=== PATIENT | male | born 1965 | race Caucasian/White ===

== ENCOUNTER → 2016-11-12 | Outpatient (CLI) | payer BC ==
--- NOTE | 2016-11-14 16:22 | POLYSOMNOGRAPH REPORT ---
CLINICAL DATA: A 51-year-old male with BMI of 31.9 referred by his physician at [facility] for evaluation of possible sleep apnea. He has a history of loud snoring and fatigue. On the evening of 11/13/2016, a home sleep apnea test was performed using a [employer] type 3 monitor. RECORDING RESULTS: Total recording time was 10 hours. The patient's monitoring time and estimated sleep time was 5.4 hours. RESPIRATORY DATA: Mild sleep apnea was documented. The JASMINA was 11.8. There were 2 obstructive apneic episodes and 54 hypopneic episodes. The longest respiratory event was 53 seconds. OXIMETRY DATA: Nocturnal hypoxemia was seen. Oxygen john was 69%. Mean saturation was 90%. Time below 89% was 41 minutes. HEART RATE DATA: Heart rates ranged from 55-76 beats per minute. SNORING DATA: Snoring was recorded throughout the night. VENEER PATCHER'S COMMENTS: The product development technician noted that snoring was loud for most of the test. Hypopneas and apneas were seen. In the last 3 hours of the night, the patient's thermistor was off and events were still scored due to saturations and respiratory changes. IMPRESSION: Mild sleep apnea/hypopnea with nocturnal hypoxemia. RECOMMENDATIONS: The patient may benefit from weight loss, use of an oral appliance, or a repeat sleep study with CPAP. Clinical correlation is needed. If there is any question about the results, an in-lab baseline sleep study is recommended. PAOLOD
== END | disposition home or self-care (01) ==
LOC: C.NEUR 10:37
PROVIDERS: ATTEND Psychiatry & Neurology Neurology
DX: G47.30 Sleep apnea, unspecified (principal)

== ENCOUNTER 2021-05-16 02:28 | Observation (INO) ==
--- NOTE | 2021-05-16 04:06 | Urology Consultation ---
Date of Consultation May 16, 2021 Assessment & Plan (1) Hematuria: I suspect the patient's hematuria is likely related to his recent urologic procedures. We recommend proceeding as follows: Patient's catheter is patent at this time, however he has only been in the emergency department approximately 1-1/2 hours. He is very anxious about going home as this is his second trip to the emergency department since his most recent procedure and he is concerned his catheter will become clogged again. I feel it is prudent to observe him in the emergency department for a few hours with instructions for nursing staff to irrigate the catheter as needed. I have discussed with the patient that if his Blanchard catheter continues to clog with blood clots we may need to take further action such as instituting continuous bladder irrigation or even potentially performing a cystoscopy for clot ev acuation. I therefore asked the patient to remain n.p.o. for the present time. We will have our day team evaluate him early this morning with additional recommendations to follow. Supervising Physician Co-Signing Physician Notes I have discussed Mr. Landaverde's case with Wood Gilliland PA-C and agree with the above documentation. Ideally for hematuria we would place a large bore catheter to optimize clot evacuation and drainage, although he is refusing catheter exchange. Reasonable to monitor to ensure catheter continues to drain prior to discharge home. Hematuria is likely related to recent instrumentation. UTI is a possibility, although he has been on antibiotics. History of Present Illness Reason for Consultation: Hematuria History of Present Illness This is a 56-year-old male who underwent a cystoscopy with left ureteral nephroscopy and removal of a stent by Dr. Negron on 05/15/2021. Patient had previously undergone a cystoscopy with a ureteral nephroscopy and a left urete ral dilatation with laser lithotripsy and stent insertion on 04/25/2021. The patient was discharged on 05/15/2021 following his procedure. He presented back to the emergency department later the same day as the patient was unable to urinate and was passing some blood clots and bloody urine prior to not being able to void. During his visit to the emergency department the patient had a Blanchard catheter placed which was irrigated and a large amount of bloody urine was obtained which subsequently cleared. Patient was discharged home with instructions to follow-up with Dr. Negron in the office the following day. There is no over the mention that the patient was receiving antibiotics in the form of Cipro. The patient represented to the emergency department on 05/16/2021 after experiencing again hematuria from his Blanchard catheter and his Blanchard catheter became clogged. Because of this he represented to the emergency department as noted where his Blanchard catheter was irrigated and several clots were removed and his Blanchard catheter was then patent. As this was a second occurrence of this happening the patient was uncomfortable being discharged home immediately as he was concerned that his catheter would drain again. Patient does note that when he was at home and his catheter became clogged he developed some severe suprapubic discomfort. He did not have any fevers, shakes, chills. He did not have any nausea vomiting. He does note that when his catheter was irrigated in the emergency department he had nearly immediate relief. He does note at this time that his bladder does not feel full. Patient notes that he has not eaten any food in several hours. He also added that he does not take any blood thinners or antiplatelet agents. At the time of my interview he was in no distress. Allergies Allergy/AdvReac Type Severity Reaction Status Date / Time No Known Allergies Allergy Mild Verified 05/15/21 11:48 Home Medications Medication Instructions Recorded Confirmed Type multivitamin 1 tab PO QPM 04/17/21 05/16/21 History oxycodone-acetaminophen 5 mg-325 1 tab PO Q6H #20 tab 04/25/21 05/16/21 Rx mg tablet ciprofloxacin HCl 500 mg tablet 500 mg PO BID #6 tab 05/15/21 05/16/21 Rx (Cipro) Patient History Medical History Acid reflux Borderline hypertension no medication Chronic back pain History of colon polyps History of COVID-19 03/2021; sore throat, congestion, chills; resolved. Kidney calculi Snores Surgical History History of colonoscopy History of cystoscopy Cystoscopy, Ureteronephroscopy, Left Ureteral Dilation, Laser Destruction of the Stone, Left Insertion Stent Catheter History of esophagogastroduodenoscopy (EGD) Family History Other No family history of adverse response to anesthesia No significant family history Social History Smoking Status: Never smoker Tobacco Type: Cigars Cigarettes Per Day: cigars prn; Second Hand Exposure: No; Hx Alcohol Use: No Hx Substance Use: No Preferred Language: Slovenian Communication Ability: Effective Client Delivery Specialist Required: No Beliefs That Will Affect Care: None Current Living Situation: Spouse Feels Safe at Home: Yes Assistive Devices: Glasses Review of Systems Constitutional: no fever and no chills Genitourinary: + as per Subjective / HPI and + hematuria Physical Exam Constitutional: well developed and well nourished; no acute distress Respiratory: normal respiratory effort; no respiratory distress and no labored breathing Gastrointestinal (Abdomen): Abdomen is soft and nondistended. There is no pain with palpation Psychiatric: A+Ox3, euthymic affect Genitourinary: A Blanchard catheter is in place. It is draining bloody urine. At the time of my interview the patient had just had his Blanchard catheter irrigated by the nursing staff and it was patent of bloody urine. There were no clots in the collection tubing or bag at the time of my interview but it was noted that clots were removed at time of irrigation. Results & Data ([facility]) Vital Signs (Past 12 Hours) Vital Signs Temp Pulse Pulse Resp BP BP Pulse Ox 05/16/21 02:32 36.1 C L 107 H 16 146/88 H 97 05/16/21 02:28 37 C 78 18 147/107 H 96 PG Care Time/CCT Total # of Minutes Spent Total Time Spent with Patient: Total time spent is greater than 50% in coordination of care (as documented) at patient's floor/unit and/or counseling patient: Coding Level of Care Code 83416 Inpt Consult Level 3 Diagnoses Hematuria R31.0 Hematuria type: gross (1) Hematuria Hematuria type: gross Qualified Code(s): R31.0 - Gross hematuria
[2021-05-16] MEDS ORDERED: SODIUM CHLORIDE 0.9% 1000ML 1,000 ML IV SCH (05:45)
[2021-05-16] MEDS ORDERED: CIPROFLOXACIN / D5W 400 MG/200 ML BAG IV STA (06:23)
[2021-05-16 06:45] LABS: Basophils # (auto) 0.01 K/uL (0-0.2); Basophils % (auto) 0.1 %; Eosinophils # (auto) 0.01 K/uL (0-0.5); Eosinophils % (auto) 0.1 %; Hematocrit (blood only) 40.8 % (42-52); Hemoglobin 13.7 g/dL (14.0-18.0); Immature Granulocytes # (auto) 0.01 K/uL (0.00-0.02); Immature Granulocytes % (auto) 0.1 %; Lymphocytes # (auto) 1.36 K/uL (1.2-3.4); Lymphocytes % (auto) 12.1 %; Mean Corpuscular Hemoglobin 29.1 pg (25-34); Mean Corpuscular Hgb Conc 33.6 g/dL (32-36); Mean Corpuscular Volume 86.6 fL (80-100); Monocytes # (auto) 0.81 K/uL (0.11-0.59); Monocytes % (auto) 7.2 %; Neutrophils # (auto) 9.05 K/uL (1.4-6.5); Neutrophils % (auto) 80.4 %; Platelet Count 226 K/uL (130-400); RDW Coefficient of Variation 13.8 % (11.5-14.5); RDW Standard Deviation 43.8 fL (36.4-46.3); Red Blood Count 4.71 M/uL (4.7-6.1); White Blood Count 11.25 K/uL (4.8-10.8)
[2021-05-16 07:10] LABS: Albumin Globulin Ratio 1.9 (0.9-2); Albumin Level 4.5 gm/dl (3.4-5.0); BUN Creatinine Ratio 17.9 (10-20); Calcium 9.6 mg/dl (8.5-10.1); Creatinine Clr Calc Pharmacy 78.7 ml/min; Est GFR (African American) 80.3 ml/min; Est GFR (Non-African American) 69.3 ml/min; Globulin 2.4 gm/dl (2.5-4.0); Potassium 4.2 mmol/L (3.5-5.1); Total Protein 6.9 gm/dl (6.0-8.3)
[2021-05-16 07:44] LABS: Partial Thromboplastin Ratio 0.9; Partial Thromboplastin Time 25.1 Seconds (21.0-31.0); Prothrombin Time 10.5 Seconds (9.0-12.0)
--- NOTE | 2021-05-16 07:49 | Emergency Department Note ---
History of Present Illness General Chief complaint: Urinary Symptoms Stated complaint: CATH NEEDS FLUSHED Time Seen by Provider: 05/16/21 03:20 History of Present Illness Maximum Pain Intensity: 4 This is a 56-year-old male presenting to the emergency department for evaluation of hematuria and urinary obstruction. The patient has a recent history of ureteral calculi at the end of last month that was stented and treated through Dr. Negron's office. Yesterday the patient had stent removal at this facility, and the procedure was uncomplicated. The patient is on Cipro following stent removal. The patient evidently went home in the early afternoon and had a small amount to eat and drink. The patient began having very low abdominal discomfort with hematuria last night between 6 PM and 7 PM. The patient did contact Dr. Negron, and did ultimately come to the ER for evaluation. At that visit earlier a Blanchard catheter was placed and the patient was monitored for several hours. He did have good flow out of the catheter and was ultimately discharged home. The patient was home for several hours before the catheter blocked again and patient began having pain. He rates his discomfort a 4/10. He has not had nausea or vomiting. No fever or chills. Home Medications Medication Instructions Recorded Confirmed Type multivitamin 1 tab PO QPM 04/17/21 05/16/21 History oxycodone-acetaminophen 5 mg-325 1 tab PO Q6H #20 tab 04/25/21 05/16/21 Rx mg tablet ciprofloxacin HCl 500 mg tablet 500 mg PO BID #6 tab 05/15/21 05/16/21 Rx (Cipro) Allergies Allergy/AdvReac Type Severity Reaction Status Date / Time No Known Allergies Allergy Mild Verified 05/15/21 11:48 Past Med/Surg History Medical History Acid reflux Borderline hypertension no medication Chronic back pain History of colon polyps History of COVID-19 03/2021; sore throat, congestion, chills; resolved. Kidney calculi Snores Surgical History History of colonoscopy History of cystoscopy Cystoscopy, Ureteronephroscopy, Left Ureteral Dilation, Laser Destruction of the Stone, Left Insertion Stent Catheter History of esophagogastroduodenoscopy (EGD) Family History Other No family history of adverse response to anesthesia No significant family history Social History Smoking Status: Never smoker Tobacco Type: Cigars Cigarettes Per Day: cigars prn; Second Hand Exposure: No; Hx Alcohol Use: No Hx Substance Use: No Preferred Language: Khmer Communication Ability: Effective Graphite Disk Assembler Required: No Beliefs That Will Affect Care: None Current Living Situation: Spouse Feels Safe at Home: Yes Safety Concerns: Feels Safe At This Time Assistive Devices: Glasses Review of Systems A total of 10 systems reviewed and were otherwise negative Physical Exam Vital Signs Vital Signs - 24 hr 05/16/21 08:00 Pulse Rate [Left] 84 Respiratory Rate 18 Respiratory Effort / Characteristics Non-Labored Spontaneous Respiratory Depth Normal Blood Pressure [Right Arm] 148/84 H Blood Pressure Mean [Right Arm] 105 Pulse Oximetry 98 Oxygen Delivery Method Room Air VITALS: Vitals are noted on the nurse's note and reviewed by myself. Vital signs stable. GENERAL: Well-developed, well-nourished, male, who is mildly uncomfortable but overall pleasant HEAD: Normocephalic atraumatic. NECK: Supple without nuchal rigidity. No lymphadenopathy. No thyromegaly. Cervical spine is nontender. HEART: Regular rate and rhythm without murmurs gallops or rubs. LUNGS: Clear to auscultation bilaterally without wheezes, rales or rhonchi. No retractions or accessory muscle use. ABDOMEN: Positive normal bowel sounds x 4. Soft, nontender, without masses or organomegaly. No guarding or rebound tenderness. No CVA tenderness. MUSCULOSKELETAL: No muscle atrophy, erythema, or edema noted. Full range of motion in all extremities,.. Course Administered Medications Ciprofloxacin (Ciprofloxacin 500 Mg Tab) 500 mg PO BID CARMEN Stop: 05/21/21 19:44 Last Admin: 05/16/21 20:05 Dose: 500 mg Documented by: [id number] Lactated Ringer's (Lr) 1,000 mls @ 100 mls/hr IV .Q10H CARMEN Stop: 06/15/21 11:33 Last Admin: 05/16/21 23:07 Dose: 100 mls/hr Documented by: [id number] Infusion: 05/16/21 23:07 Dose: 100 mls/hr Documented by: [id number] Admin: 05/16/21 13:15 Dose: 100 mls/hr Documented by: [id number] Discontinued Medications Sodium Chloride (Nss 1000ml) 1,000 mls @ 999 mls/hr IV .Q1H1M CARMEN Stop: 05/16/21 06:45 Last Infusion: 05/16/21 07:15 Dose: 0 mls/hr Documented by: [id number] Admin: 05/16/21 06:13 Dose: 999 mls/hr Documented by: [id number] Ciprofloxacin (Cipro / D5w) 400 mg in 200 mls @ 100 mls/hr IV NOW STA; Protocol Stop: 05/16/21 08:22 Last Infusion: 05/16/21 09:21 Dose: 0 mls/hr Documented by: [id number] Admin: 05/16/21 07:09 Dose: 100 mls/hr Documented by: [id number] Medical Decision Making Differential Diagnosis Differential diagnosis: Etiologies such as shingles, pyelonephritis/UTI, renal colic, appendicitis, diverticulitis, mesenteric ischemia, torsion, aortic pathology, infections, inflammatory bowel disease, bowel obstruction, PUD, biliary pathology, as well as others were entertained. Laboratory Data Result diagrams: 05/17/21 05:44 05/16/21 06:20 Lab Results 05/16/21 05/16/21 05/16/21 Range/Units 06:20 06:20 06:20 WBC 11.25 H (4.8-10.8) K/uL RBC 4.71 (4.7-6.1) M/uL Hgb 13.7 L (14.0-18.0) g/dL Hct 40.8 L (42-52) % MCV 86.6 (80-100) fL MCH 29.1 (25-34) pg MCHC 33.6 (32-36) g/dL RDW Std Deviation 43.8 (36.4-46.3) fL RDW Coeff of Supriya 13.8 (11.5-14.5) % Plt Count 226 (130-400) K/uL MPV 10.0 (7.4-10.4) fL Immature Gran % (Auto) 0.1 % Neut % (Auto) 80.4 % Lymph % (Auto) 12.1 % Huntington % (Auto) 7.2 % Eos % (Auto) 0.1 % Baso % (Auto) 0.1 % Neut # (Auto) 9.05 H (1.4-6.5) K/uL Lymph # (Auto) 1.36 (1.2-3.4) K/uL Huntington # (Auto) 0.81 H (0.11-0.59) K/uL Eos # (Auto) 0.01 (0-0.5) K/uL Baso # (Auto) 0.01 (0-0.2) K/uL Immature Gran # (Auto) 0.01 (0.00-0.02) K/uL PT Cancelled INR Cancelled APTT Cancelled PTT Ratio Cancelled Sodium 140 (136-145) mmol/L Potassium 4.2 (3.5-5.1) mmol/L Chloride 106 (98-107) mmol/L Carbon Dioxide 26 (21-32) mmol/L Anion Gap 8 (3-11) BUN 21 (6-23) mg/dl Creatinine 1.17 (0.6-1.4) mg/dl Est Cr Clr Drug Dosing 78.7 ml/min Est GFR ( Amer) 80.3 ml/min Est GFR (Non-Af Amer) 69.3 ml/min BUN/Creatinine Ratio 17.9 (10-20) Glucose 105 H (70-99(Fasting)) mg/dl Calcium 9.6 (8.5-10.1) mg/dl Total Bilirubin 1.0 (0.2-1.0) mg/dl AST 16 (13-39) U/L ALT 20 (7-52) U/L Alkaline Phosphatase 61 (34-104) U/L Total Protein 6.9 (6.0-8.3) gm/dl Albumin 4.5 (3.4-5.0) gm/dl Globulin 2.4 L (2.5-4.0) gm/dl Albumin/Globulin Ratio 1.9 (0.9-2) 05/16/21 Range/Units 07:13 WBC (4.8-10.8) K/uL RBC (4.7-6.1) M/uL Hgb (14.0-18.0) g/dL Hct (42-52) % MCV (80-100) fL MCH (25-34) pg MCHC (32-36) g/dL RDW Std Deviation (36.4-46.3) fL RDW Coeff of Supriya (11.5-14.5) % Plt Count (130-400) K/uL MPV (7.4-10.4) fL Immature Gran % (Auto) % Neut % (Auto) % Lymph % (Auto) % Huntington % (Auto) % Eos % (Auto) % Baso % (Auto) % Neut # (Auto) (1.4-6.5) K/uL Lymph # (Auto) (1.2-3.4) K/uL Huntington # (Auto) (0.11-0.59) K/uL Eos # (Auto) (0-0.5) K/uL Baso # (Auto) (0-0.2) K/uL Immature Gran # (Auto) (0.00-0.02) K/uL PT 10.5 INR 1.0 APTT 25.1 PTT Ratio 0.9 Sodium (136-145) mmol/L Potassium (3.5-5.1) mmol/L Chloride (98-107) mmol/L Carbon Dioxide (21-32) mmol/L Anion Gap (3-11) BUN (6-23) mg/dl Creatinine (0.6-1.4) mg/dl Est Cr Clr Drug Dosing ml/min Est GFR ( Amer) ml/min Est GFR (Non-Af Amer) ml/min BUN/Creatinine Ratio (10-20) Glucose (70-99(Fasting)) mg/dl Calcium (8.5-10.1) mg/dl Total Bilirubin (0.2-1.0) mg/dl AST (13-39) U/L ALT (7-52) U/L Alkaline Phosphatase (34-104) U/L Total Protein (6.0-8.3) gm/dl Albumin (3.4-5.0) gm/dl Globulin (2.5-4.0) gm/dl Albumin/Globulin Ratio (0.9-2) MDM Narrative Physical exam and history were performed. Nursing notes, EMR, and Medication List were personally reviewed. Patient appears to have hematuria with urinary retention/bladder obstruction symptoms. The patient was seen immediately at bedside and nursing was able to flush the catheter and get excellent return of blood-tinged urine into the Blanchard bag. I did spend a lengthy amount of time discussing options of care with the patient as this is his second visit to the ER after his procedure yesterday afternoon. I did reach out to urology, Iraj Gilliland PA-C, who did evaluate the patient had bedside. Initial plan was to monitor the patient until plant technical specialist and have him evaluated by the urology physician. The patient did have orders placed for every 30 minute bladder irrigation as well as as needed bladder irrigation. The patient does have concern about going home with his symptoms the way they are. The patient initially did very well with irrigation, however after the 3rd irrigation we are not able to easily return urine after gentle flushing. Bladder scan was performed and did return about 260 cc. Iraj Gilliland did reevaluate the patient at bedside, and was able to manipulate the Blanchard and get good urine return again. At this point I did order IV access to hydrate the patient as he has been n.p.o. and has not had much to eat or drink since the procedure yesterday. The patient was also concerned about volume blood loss and I did feel it is reasonable to check blood counts and INR. After discussion with urology the patient was also given his dose of Cipro, and this was done IV to keep him n.p.o. The patient's blood work is as above and was reviewed. He does not have a significantly elevated white blood cell count, gross anemia, or significant electrolyte imbalance. INR is 1.0. Additional labs are nondiagnostic. Overall the patient remained in stable condition until the morning. Dr. Lobato of urology was good enough to evaluate the patient at bedside, and will admit the patient for ongoing care. Please see the urology team dictation for further patient course, plan, disposition. The chart was completed utilizing [employer] Speech Voice Recognition Software. Grammatical errors, random word insertions, pronoun errors, and incomplete sentences are an occasional consequence of this system due to software limitations, ambient noise, and hardware issues. Any formal questions or concerns about the content, text, or information contained within the body of this dictation should be directly addressed to the provider for clarification. . Impression & Plan Acute retention of urine, Hematuria Discharge Plan Visit Data Chief Complaint: Urinary Symptoms Stated Complaint: CATH NEEDS FLUSHED ED Provider: Elizabeth Aguirre ED Midlevel Provider: Feliciano Luna Discharge Problem: Acute retention of urine, Hematuria Patient Disposition: Admitted As Inpatient Discharge Instructions Interventions: ED Discharge Assessment Last Done: 05/16/21 10:50
--- NOTE | 2021-05-16 11:00 | History & Physical Report ---
Date of Service May 16, 2021 Assessment & Plan (1) Hematuria: (2) Urinary retention: Plan: 56yo M who is s/p Cystoscopy, Left Ureteronephroscopy, Removal of Stent Catheter with Dr. Negron on 05/15 who presented to the ED with gross hematuria and urinary retention likely secondary to recent instrumentation. - Patient admitted to urology for gross hematuria, urinary retention. - He is afebrile, hemodynamically stable. - Labs reviewed, Wbc 11.25, Creatinine 1.17, Hemoglobin 13.7. - IV Ciprofloxacin given in ED this morning. Plan: - Maintain Grace catheter and closely monitor. Bladder scan as needed. - Gently hand irrigate grace catheter as needed for clots, retention, suprapubic pain. - Clear liquid diet. - IV fluids LR 100 ml/hr. - PRN pain control with Tylenol, Oxycodone. - Encourage ambulation. - Discussed if Grace continues to clot off, he may require CBI or cysto with clot evacuation. - Ideally for hematuria we would place a large bore catheter to optimize clot evacuation and drainage, however he continues to decline catheter exchange. - If catheter continues to drain and urine is clearing, can likely be discharged later today or tomorrow morning. History of Present Illness Chief Complaint: Urinary retention, hematuria Primary Care Provider: Uzair Dalal MD This is a 56-year-old male who underwent a cystoscopy with left ureteroscopy and removal of stent by Dr. Negron on 05/15/2021. Patient had previously undergone a cystoscopy, ureteroscopy, left ureteral dilatation with laser lithotripsy and stent insertion on 04/25/2021. The patient was discharged on 05/15/2021 following his procedure. He presented back to the emergency department later the same day as the patient was unable to urinate and was passing some blood clots and bloody urine prior to not being able to void. During his visit to the emergency department the patient had a Grace catheter placed which was irrigated and a large amount of bloody urine was obtained which subsequently cleared. Patient was discharged home with instructions to follow-up with Dr. Negron in the office the following day. The patient was receiving antibiotics in the form of Ciprofloxacin. The patient re- presented to the emergency department on 05/16/2021 after experiencing again hematuria from his Grace catheter and his Grace catheter became clogged. His Grace catheter was irrigated and several clots were removed and his Grace catheter was then patent. Unfortunately, his catheter clogged again and urology was contacted as the catheter was not draining and the RN was unable to irrigate. He was bladder scanned for approx. 260 cc.It was recommended to the patent to exchange the existing Grace for a larger one, however he declined. The catheter was manually irrigated with retrieval of several small clots and dark red urine. Irrigation maneuvers continued until urine was cool aid colored. As this was a second occurrence of this happening the patient was uncomfortable being discharged home immediately as he was concerned that his catheter would clog again. He remained in the ED for continued observation. On exam this morning in the ED, the pt was awake and resting in bed. In no acute distress. Grace catheter intact and draining light red urine without clot. No bladder pain or pressure at present. Patient does note that when his catheter becomes clogged he develops some severe suprapubic discomfort. Patient notes that he has not eaten any food since last evening. He does not take any a nticoagulants. As this was his second presentation overnight to the ED and with his persistent hematuria this morning, the patient was uncomfortable being discharged home and therefore he was admitted to urology for continued observation and management. A dose of IV Ciprofloxacin was given in the ED. Patient is NPO status. Allergies Allergy/AdvReac Type Severity Reaction Status Date / Time No Known Allergies Allergy Mild Verified 05/15/21 11:48 Home Medications Medication Instructions Recorded Confirmed Type multivitamin 1 tab PO QPM 04/17/21 05/16/21 History oxycodone-acetaminophen 5 mg-325 1 tab PO Q6H #20 tab 04/25/21 05/16/21 Rx mg tablet ciprofloxacin HCl 500 mg tablet 500 mg PO BID #6 tab 05/15/21 05/16/21 Rx (Cipro) phenazopyridine 100 mg tablet 100 mg PO BID PRN #7 tab 05/17/21 Rx (Pyridium) Past Med/Surg History Medical History Acid reflux Borderline hypertension no medication Chronic back pain History of colon polyps History of COVID-19 03/2021; sore throat, congestion, chills; resolved. 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 Beliefs That Will Affect Care: None Current Living Situation: Spouse Feels Safe at Home: Yes Safety Concerns: Feels Safe At This Time Assistive Devices: None Review of Systems All systems reviewed & are unremarkable except as noted in HPI & below Physical Exam Constitutional: well developed and well nourished; no acute distress Neck: normal visual inspection Respiratory: normal respiratory effort; no respiratory distress and no labored breathing Gastrointestinal (Abdomen): Inspection/Auscultation: abdomen normal to inspection Percussion/Palpation: abdomen soft; abdomen nontender and no guarding Musculoskeletal: Head/Neck/Chest: normocephalic Skin: No visible rashes or lesions to exposed skin areas. Neurologic: moves all extremities and awake Psychiatric: Orientation: alert, oriented x 3 and cooperative Genitourinary: Grace catheter intact, draining light red urine without clot. Results & Data ([facility]) Vital Signs (Past 12 Hours) Vital Signs Temp Pulse Pulse Resp BP BP Pulse Ox 05/16/21 10:00 91 H 20 177/106 H 97 05/16/21 08:00 84 18 148/84 H 98 05/16/21 06:00 36.8 C 82 18 160/59 H 97 05/16/21 04:28 85 18 162/97 H 97 05/16/21 02:32 36.1 C L 107 H 16 146/88 H 97 05/16/21 02:28 37 C 78 18 147/107 H 96 Supervising Physician Co-Signing Physician Notes Saw patient with OLIVIA. Given multiple bounce backs due to hematuria and poorly draining grace catheter, will opt to admit observation to ensure no further issues. He can have a clear liquid diet just in case her requires the OR later. Will monitor hematuria but I suspect this will improve with time. Ideally, would exchange his catheter for a larger Fr however patient declined. PG Care Time/CCT Total # of Minutes Spent Total Time Spent with Patient: Total time spent is greater than 50% in coordination of care (as documented) at patient's floor/unit and/or counseling patient: Coding Level of Care Code INT OBSERVATION CARE 30M LVL 1 Diagnoses Hematuria R31.0 Hematuria type: gross Urinary retention R33.9 (1) Hematuria Hematuria type: gross Qualified Code(s): R31.0 - Gross hematuria
[2021-05-16] MEDS ORDERED: oxyCODONE HCL IR 5 MG TAB (IMMEDIATE RELEASE) PO PRN ×2 (11:34)
[2021-05-16] MEDS ORDERED: ACETAMINOPHEN 325 MG TAB PO PRN (11:34)
[2021-05-16] MEDS: LACTATED RINGER'S 1,000 ML IV SCH ×2 (13:15→23:07)
[2021-05-16] MEDS: CIPROFLOXACIN 500 MG TAB PO SCH (20:05)
[2021-05-17 06:02] LABS: Basophils # (auto) 0.02 K/uL (0-0.2); Basophils % (auto) 0.2 %; Eosinophils # (auto) 0.08 K/uL (0-0.5); Eosinophils % (auto) 0.9 %; Hematocrit (blood only) 37.6 % (42-52); Hemoglobin 12.4 g/dL (14.0-18.0); Immature Granulocytes # (auto) 0.01 K/uL (0.00-0.02); Immature Granulocytes % (auto) 0.1 %; Lymphocytes # (auto) 2.75 K/uL (1.2-3.4); Lymphocytes % (auto) 29.9 %; Mean Corpuscular Hemoglobin 29.2 pg (25-34); Mean Corpuscular Volume 88.5 fL (80-100); Mean Platelet Volume 9.8 fL (7.4-10.4); Monocytes # (auto) 0.64 K/uL (0.11-0.59); Neutrophils # (auto) 5.69 K/uL (1.4-6.5); Neutrophils % (auto) 61.9 %; Platelet Count 172 K/uL (130-400); RDW Coefficient of Variation 13.8 % (11.5-14.5); RDW Standard Deviation 44.7 fL (36.4-46.3); Red Blood Count 4.25 M/uL (4.7-6.1); White Blood Count 9.19 K/uL (4.8-10.8)
[2021-05-17 06:39] LABS: Calcium 8.8 mg/dl (8.5-10.1); Est GFR (African American) 79.5 ml/min; Est GFR (Non-African American) 68.6 ml/min
[2021-05-17] MEDS: CIPROFLOXACIN 500 MG TAB PO SCH (08:20)
--- NOTE | 2021-05-17 08:30 | Urology Progress Note ---
Date of Service May 17, 2021 Assessment & Plan (1) Acute retention of urine: (2) Hematuria: Plan: 56yo M who is s/p Cystoscopy, Left Ureteronephroscopy, Removal of Stent Catheter with Dr. Negron on 05/15 who presented to the ED with gross hematuria and acute urinary retention likely secondary to recent instrumentation. - Patient admitted to urology for gross hematuria, urinary retention. - He is afebrile, hemodynamically stable. - Labs reviewed, Wbc 9.19, Creatinine 1.18, Hemoglobin 12.4. - Preop UC&S from 05/10 negative, dose of IV Ciprofloxacin given in ED - Blanchard catheter currently draining clear yellow to light pink urine. Plan: - Remove Blanchard catheter this morning and monitor for void. - Regular diet. - Encourage ambulation. - Continue PO Ciprofloxacin twice daily. - D/C IV Fluids. - PRN Pyridium for bladder pain/dysuria. - Anticipate discharge home later today presuming he is able to void without issue. Admission and Anticipated Discharge Date Admission Date: May 16, 2021 Subjective Pt examined at bedside this AM. Awake, resting in bed on arrival. No acute issues overnight. Blanchard catheter intact, draining clear yellow to light pink urine with a few small clots noted in tubing. Nursing manually irrigated x 1 yesterday evening with return of several small clots. Bladder scanned for 0ml. Denies bladder pain or pressure at present. No fevers. Offered no additional complaints at time of exam. Review of Systems Constitutional: as per Subjective / HPI Genitourinary: + as per Subjective / HPI Physical Exam Constitutional: well developed and well nourished; no acute distress Respiratory: normal respiratory effort; no respiratory distress and no labored breathing Gastrointestinal (Abdomen): Inspection/Auscultation: abdomen normal to inspection Musculoskeletal: Head/Neck/Chest: normocephalic Neurologic: moves all extremities and awake Psychiatric: Orientation: alert, oriented x 3 and cooperative Genitourinary: Blanchard catheter intact, draining light pink urine with a few small clots noted in tubing. Results & Data ([facility]) Vital Signs (Past 12 Hours) Vital Signs Temp Pulse Resp BP Pulse Ox 05/17/21 07:02 37 C 78 16 142/93 H 95 05/16/21 22:13 36.8 C 70 16 144/90 H 98 PG Care Time/CCT Total # of Minutes Spent Total Time Spent with Patient: Total time spent is greater than 50% in coordination of care (as documented) at patient's floor/unit and/or counseling patient: Coding Level of Care Code 06059 Subseq Hosp Care Lvl 2 Diagnoses Acute retention of urine R33.8 Hematuria R31.9
[2021-05-17] MEDS: LACTATED RINGER'S 1,000 ML IV SCH (09:39)
[2021-05-17] MEDS ORDERED: PHENAZOPYRIDINE HCL 100 MG TAB PO PRN (11:03)
--- NOTE | 2021-05-17 13:34 | Discharge Summary ---
Date of Service May 17, 2021 Admission HPI Per Admitting Provider This is a 56-year-old male who underwent a cystoscopy with left ureteroscopy and removal of stent by Dr. Negron on 05/15/2021. Patient had previously undergone a cystoscopy, ureteroscopy, left ureteral dilatation with laser lithotripsy and stent insertion on 04/25/2021. The patient was discharged on 05/15/2021 following his procedure. He presented back to the emergency department later the same day as the patient was unable to urinate and was passing some blood clots and bloody urine prior to not being able to void. During his visit to the emergency department the patient had a Blanchard catheter placed which was irrigated and a large amount of bloody urine was obtained which subsequently cleared. Patient was discharged home with instructions to follow-up with Dr. Negron in the office the following day. T he patient was receiving antibiotics in the form of Ciprofloxacin. The patient re- presented to the emergency department on 05/16/2021 after experiencing again hematuria from his Blanchard catheter and his Blanchard catheter became clogged. His Blanchard catheter was irrigated and several clots were removed and his Blanchard catheter was then patent. Unfortunately, his catheter clogged again and urology was contacted as the catheter was not draining and the RN was unable to irrigate. He was bladder scanned for approx. 260 cc.It was recommended to the patent to exchange the existing Blanchard for a larger one, however he declined. The catheter was manually irrigated with retrieval of several small clots and dark red urine. Irrigation maneuvers continued until urine was cool aid colored. As this was a second occurrence of this happening the patient was uncomfortable being discharged home immediately as he was concerned that his catheter would clog again. He remained in the ED for continued observation. On exam this morning in the ED, the pt was awake and resting in bed. In no acute distress. Blanchard catheter intact and draining light red urine without clot. No bladder pain or pressure at present. Patient does note that when his catheter becomes clogged he develops some severe suprapubic discomfort. Patient notes that he has not eaten any food since last evening. He does not take any antic oagulants. As this was his second presentation overnight to the ED and with his persistent hematuria this morning, the patient was uncomfortable being discharged home and therefore he was admitted to urology for continued observation and management. A dose of IV Ciprofloxacin was given in the ED. Patient is NPO status. Admission Exam Per Admitting Provider Constitutional: well developed and well nourished; no acute distress Neck: normal visual inspection Respiratory: normal respiratory effort; no respiratory distress and no labored breathing Gastrointestinal (Abdomen): Inspection/Auscultation: abdomen normal to inspection Percussion/Palpation: abdomen soft; abdomen nontender and no guarding Musculoskeletal: Head/Neck/Chest: normocephalic Skin: No visible rashes or lesions to exposed skin areas. Neurologic: moves all extremities and awake Psychiatric: Orientation: alert, oriented x 3 and cooperative Genitourinary: Blanchard catheter intact, draining light red urine without clot. Principal Diagnosis Hematuria, Acute urinary retention Discharge Exam Constitutional:well developed and well nourished; no acute distress Respiratory:normal respiratory effort; no respiratory distress and no labored breathing Gastrointestinal (Abdomen):Inspection/Auscultation: abdomen normal to inspection Musculoskeletal:Head/Neck/Chest: normocephalic Neurologic:moves all extremities and awake Psychiatric:Orientation: alert, oriented x 3 and cooperative Genitourinary:Blanchard catheter intact, draining light pink urine with a few small clots noted in tubing. Discharge Data Allergies Allergy/AdvReac Type Severity Reaction Status Date / Time No Known Allergies Allergy Mild Verified 05/15/21 11:48 Consultations 05/16/21 06:07 Consult Urology Stat Hospital Course (1) Hematuria: (2) Acute retention of urine: 56yo M who is s/p Cystoscopy, Left Ureteronephroscopy, Removal of Stent Catheter with Dr. Negron on 05/15 who presented to the ED with gross hematuria and acute urinary retention likely secondary to recent instrumentation. - Patient was admitted to urology for further observation and management of gross hematuria, acute urinary retention. - Remained afebrile, hemodynamically stable. - Labs appropriate. - Patient's catheter remained intact and patent with intermittent manual irrigation. - His urine began to clear appropriately and his catheter was removed on 05/17. - He was able to void without issue following catheter removal. PVR 29ml. - Patient was discharged home in stable condition. - Patient to continue home antibiotic as previously directed. Total Time Total Time Spent Total Time Spent (In Minutes): 15 Discharge Plan Discharge Items Patient Disposition: Home - Self-Care Reason For Visit: POSTOP HEMATURIA, RETENTION Discharge Diagnosis: Postop Hematuria, Retention Activity: Per Instructions section Lifting: Gradually increase as tolerated Bathing: No limitations Exercise/Sports: Gradually increase as tolerated Non-emergency contact: Surgeon and Urologist Call non-emergency contact if: you have any medication questions, your pain is not controlled, your pain is worsening and you have a fever Follow-up/Referrals: Leif Negron MD [Physician] - (Neyda, Urology office will call the patient with a hospital f/u visit.) Uzair Dalal MD [Primary Care Provider] - Diet: Regular Addtl Attending Provider Instructions: Please take all medications as prescribed and keep all follow-ups as scheduled. Please call the urology office at [phone] with any questions, concerns or need to reschedule appointments for any reason. We are happy to assist you. We have sent a prescription to your pharmacy for Pyridium 100mg twice daily as needed for bladder pain. This will turn your urine orange and can stain your clothing. Please complete your antibiotic (Ciprofloxacin) as previously prescribed. The Urology office will contact you to arrange a follow-up appointment. Tips for your recovery at home: Drink plenty of fluids during the day (enough to keep your urine very light colored). This will help keep a healthy flow of urine. Be sure to finish the antibiotics as prescribed. When to call [facility] at [phone]: Your urine contains heavy blood clots or you are unable to urinate. Fever of 101F or higher, chills, nausea, or vomiting Your pain is severe and/or not relieved with medication Pending Studies at Discharge: No Stand-Alone Forms: My [facility], Smoking Cessation Medications and DC Order Prescriptions: New phenazopyridine [Pyridium] 100 mg tablet 100 mg PO BID PRN (Reason: pain) Qty: 7 RF: 0 Continued ciprofloxacin HCl [Cipro] 500 mg tablet 500 mg PO BID Qty: 6 RF: 0 multivitamin Tablet 1 tab PO QPM RF: 0 oxycodone-acetaminophen 5-325 mg tablet 1 tab PO Q6H Qty: 20 RF: 0 Discharge Orders: Discharge Order (Routine); Ordered 05/17/21 Ordered By: Violeta Menjivar/Other Patient Handouts: Hematuria: Possible Causes Admission Data Admit Date/Time: 05/16/21 08:57 Attending Provider: Varun Lobato Admit Provider: Varun Lobato Primary Care Provider: Uzair Dalal Other Providers: Charlie Flowers ; Gopal Mitchell ; Leif Negron ; Violeta Muro ; Scar Contreras ; Carrie Garcia ; Charleen Roberto ; Guillermina Alston ; Celso Contreras ; Salas Bergeron ; Ida Jo ; Hawa Alston ; Varun Lobato Coding Level of Care Code D/C DAY MANAGEMENT <30 MINS Diagnoses Hematuria R31.9 Acute retention of urine R33.8
== END 2021-05-17 13:56 | disposition home or self-care (01) ==
LOC: ED 02:28 → 3N 02:28

== ENCOUNTER 2021-08-24 10:10 | Inpatient (IN) ==
[2021-08-24] MEDS ORDERED: SODIUM CHLORIDE 0.9% 250 ML IV PRN (10:13)
[2021-08-24 11:03] LABS: Basophils # (auto) 0.01 K/uL (0-0.2); Basophils % (auto) 0.1 %; Eosinophils # (auto) 0.01 K/uL (0-0.5); Eosinophils % (auto) 0.1 %; Hemoglobin 13.8 g/dL (14.0-18.0); Immature Granulocytes # (auto) 0.02 K/uL (0.00-0.02); Immature Granulocytes % (auto) 0.2 %; Lymphocytes # (auto) 1.68 K/uL (1.2-3.4); Lymphocytes % (auto) 14.5 %; Mean Corpuscular Hemoglobin 30.2 pg (25-34); Mean Corpuscular Hgb Conc 34.5 g/dL (32-36); Mean Corpuscular Volume 87.5 fL (80-100); Mean Platelet Volume 9.5 fL (7.4-10.4); Monocytes # (auto) 0.98 K/uL (0.11-0.59); Monocytes % (auto) 8.5 %; Neutrophils # (auto) 8.88 K/uL (1.4-6.5); Neutrophils % (auto) 76.6 %; Platelet Count 178 K/uL (130-400); RDW Standard Deviation 41.8 fL (36.4-46.3); Red Blood Count 4.57 M/uL (4.7-6.1); White Blood Count 11.58 K/uL (4.8-10.8)
[2021-08-24] MEDS ORDERED: HYDROmorphone INJ 0.5 MG/0.5 ML SYR IV PRN ×2 (11:03→13:04)
[2021-08-24 11:19] LABS: Partial Thromboplastin Time 26.2 Seconds (21.0-31.0); Prothrombin Time 10.3 Seconds (9.0-12.0)
[2021-08-24 11:26] LABS: Albumin Globulin Ratio 1.6 (0.9-2); Albumin Level 4.1 gm/dl (3.4-5.0); BUN Creatinine Ratio 10.3 (10-20); Bilirubin,Total 1.5 mg/dl (0.2-1.0); Calcium 9.7 mg/dl (8.5-10.1); Creatinine Clr Calc Pharmacy 50.4 ml/min; Est GFR (African American) 46.5 ml/min; Est GFR (Non-African American) 40.1 ml/min; Globulin 2.6 gm/dl (2.5-4.0); Potassium 3.9 mmol/L (3.5-5.1); Total Protein 6.7 gm/dl (6.0-8.3)
[2021-08-24] MEDS ORDERED: SODIUM CHLORIDE 0.9% 1000ML 1,000 ML IV STA (11:30)
[2021-08-24] MEDS ORDERED: SODIUM CHLORIDE 0.9% 1000ML 500 ML IV ONE (11:30)
--- NOTE | 2021-08-24 12:13 | Emergency Department Note ---
Impression & Plan Kidney hematoma, Ureterolithiasis, Retroperitoneal bleeding, Acute right flank pain ED Provider Note INFORMANT: Patient ED PROVIDER(S): Oren Ellison MD CHIEF COMPLAINT: Abnormal CT scan PLAN: Disposition: Admitted Condition: Good Outpatient prescription management: none Referral: None MEDICAL DECISION MAKING: Patient was contacted return due to abnormal CT findings on the other read dysmenorrhea. I did review his CT from last night. I consulted with his urologist, Dr. Contreras upon receiving the and before the patient arrived in the emergency department. He did have an IV established. He was typed and crossed in case blood is necessary. He was given Dilaudid for pain. He was hydrated. The patient had a slight drop in his hemoglobin however it is still acceptable. Vital signs are stable. He was reassessed and was stable. Dr. Contreras contacted again and updated. He evaluated the patient in the emergency department. He will admit the patient for further treatment and management. Triage Nursing notes reviewed and agree them. Vital Signs: reviewed and remarkable for no significant abnormalities Differential diagnosis: Intraperitoneal bleeding, solid organ injury, renal colic, UTI, appendicitis, diverticulitis, mesenteric ischemia, aortic pathology, infections, inflammatory bowel disease, PUD, biliary pathology, as well as other pathologies. Diagnostics interpreted by me: ECG: none Cardiac Monitoring: Cardiac monitoring ordered by me: The patient was placed on continuous cardiac monitoring and observed. It revealed a normal sinus rhythm at 70beats per minute without ectopy or evidence of dysrhythmia. Imaging studies: CT imaging reviewed as above. HPI: The patient is a 56 year old male who presents to the Emergency Room due to being called back because of abnormal CT scan finding. The patient had lithotripsy done yesterday. He was in the ER overnight because of CT was done. Findings of the kidney stone noted. However the subcapsular renal hematoma as well as findings concerning for mild retroperitoneal bleeding. Patient states that he is very fatigued and has not slept well. He did feel better treatment provided in the ER last night. He notes his pain 4 out of 10. He did not take any additional medication at home. Pt denies LOC, headache, fevers, chills, diaphoresis, visual changes, neck pain, chest pain, breathing difficulties, nausea, vomiting, left-sided back pain, left-sided abdominal pain, hematochezia, numbness, weakness, lymphadenopathy, rash, or other complaints. ROS: See above HPI for pertinent positives & negatives. A total of 10 systems reviewed and were otherwise negative. PAST MEDICAL HISTORY:See Below , kidney stones, COVID-19 PAST SURGICAL HISTORY:See Below, lithotripsy FAMILY HISTORY:See Below SOCIAL HISTORY:See Below, employed HOME MEDICATIONS:See Below ALLERGIES:See Below VITALS:See Below PHYSICAL EXAMINATION: GENERAL: Awake, alert, uncomfortable-appearing, in no distress HENT: Normocephalic, atraumatic. Oropharynx unremarkable. EYES: Normal conjunctiva. Sclera non-icteric. NECK: Inspection normal. Non-tender. Supple. No nuchal rigidity. FROM. No masses. RESPIRATORY: Clear to auscultation. No wheezes. No rales. Normal respiratory effort. CARDIAC: Normal rate. Normal rhythm. No murmurs. No rubs. Extremities warm and well perfused. Pulses equal. No JVD. GI: Soft, non-distended. Right flank tenderness to palpation. No rebound or guarding. No masses. RECTAL: Deferred. MUSCULOSKELETAL: Atraumatic. Chest examination reveals no tenderness. The back is symmetrical on inspection without obvious abnormality. There is right CVA tenderness to palpation. No joint edema. LOWER EXTREMITIES: Calves are equal size bilaterally and non-tender. No edema. No discoloration. NEURO: Normal sensorium. No sensory or motor deficits noted. SKIN: No rash or jaundice noted. Oren Ellison MD Past Med/Surg History Medical History Borderline hypertension no medication Chronic back pain ongoing History of colon polyps History of COVID-19 03/2021; sore throat, congestion, chills; resolved. Hx of gastroesophageal reflux (GERD) Kidney calculi left side "cleaned out" Dr to "clean out" right side on 08/02. Surgical History History of colonoscopy History of cystoscopy Cystoscopy, Ureteronephroscopy, Left Ureteral Dilation, Laser Destruction of the Stone, Left Insertion Stent Catheter History of esophagogastroduodenoscopy (EGD) Family History Other No family history of adverse response to anesthesia No significant family history Social History Smoking Status: Never smoker Tobacco Type: Cigars Cigarettes Per Day: cigars prn; Second Hand Exposure: No; Hx Alcohol Use: No Hx Substance Use: No Preferred Language: Swedish Communication Ability: Effective Case Manager Specialist Required: No Beliefs That Will Affect Care: None Current Living Situation: Alone Feels Safe at Home: Yes Assistive Devices: None Allergies Allergies Allergy/AdvReac Type Severity Reaction Status Date / Time No Known Allergies Allergy Mild Verified 08/23/21 06:18 Home Meds Home Medications Medication Instructions Recorded Confirmed multivitamin 1 tab PO QPM 04/17/21 08/23/21 Previous Rx's Medication Instructions Recorded oxycodone 5 mg tablet 5 mg PO BID PRN #10 tab 08/23/21 tamsulosin 0.4 mg capsule 0.4 mg PO HS #30 cap 08/23/21 Results & Data (ED) Vital Signs Vital Signs - 24 hr 08/24/21 10:21 08/24/21 10:32 08/24/21 10:41 Temperature 36.4 C L Temperature Source Temporal Artery Scan Oral Pulse Rate 78 Pulse Rate [Right Finger] Pulse Rhythm Regular Pulse Strength Normal Respiratory Rate 20 Respiratory Effort / Characteristics Non-Labored Spontaneous Respiratory Depth Normal Respiratory Pattern Regular Blood Pressure 136/85 Blood Pressure Mean 102 Blood Pressure Position Sitting Pulse Oximetry 94 Oxygen Delivery Method Room Air Room Air Sepsis Recent Fever Within 48 Hours No Sepsis New/Unexplained Change in Mental Status N/A Sepsis Action Taken by Nursing No Action Required 08/24/21 12:28 Temperature Temperature Source Pulse Rate Pulse Rate [Right Finger] 70 Pulse Rhythm Pulse Strength Respiratory Rate 18 Respiratory Effort / Characteristics Non-Labored Respiratory Depth Normal Respiratory Pattern Blood Pressure Blood Pressure Mean Blood Pressure Position Pulse Oximetry 98 Oxygen Delivery Method Room Air Sepsis Recent Fever Within 48 Hours Sepsis New/Unexplained Change in Mental Status Sepsis Action Taken by Nursing Laboratory Data Result diagrams: 08/24/21 10:44 08/24/21 10:44 Lab Results 08/24/21 08/24/21 08/24/21 Range/Units 10:27 10:44 10:44 WBC 11.58 H (4.8-10.8) K/uL RBC 4.57 L (4.7-6.1) M/uL Hgb 13.8 L (14.0-18.0) g/dL Hct 40.0 L (42-52) % MCV 87.5 (80-100) fL MCH 30.2 (25-34) pg MCHC 34.5 (32-36) g/dL RDW Std Deviation 41.8 (36.4-46.3) fL RDW Coeff of Supriya 13.0 (11.5-14.5) % Plt Count 178 (130-400) K/uL MPV 9.5 (7.4-10.4) fL Immature Gran % (Auto) 0.2 % Neut % (Auto) 76.6 % Lymph % (Auto) 14.5 % Wharton % (Auto) 8.5 % Eos % (Auto) 0.1 % Baso % (Auto) 0.1 % Neut # (Auto) 8.88 H (1.4-6.5) K/uL Lymph # (Auto) 1.68 (1.2-3.4) K/uL Wharton # (Auto) 0.98 H (0.11-0.59) K/uL Eos # (Auto) 0.01 (0-0.5) K/uL Baso # (Auto) 0.01 (0-0.2) K/uL Immature Gran # (Auto) 0.02 (0.00-0.02) K/uL PT (9.0-12.0) Seconds INR (0.9-1.1) APTT (21.0-31.0) Seconds PTT Ratio Sodium (136-145) mmol/L Potassium (3.5-5.1) mmol/L Chloride (98-107) mmol/L Carbon Dioxide (21-32) mmol/L Anion Gap (3-11) BUN (6-23) mg/dl Creatinine (0.6-1.4) mg/dl Est Cr Clr Drug Dosing ml/min Est GFR ( Amer) ml/min Est GFR (Non-Af Amer) ml/min BUN/Creatinine Ratio (10-20) Glucose (70-99(Fasting)) mg/dl Calcium (8.5-10.1) mg/dl Total Bilirubin (0.2-1.0) mg/dl AST (13-39) U/L ALT (7-52) U/L Alkaline Phosphatase (34-104) U/L Total Protein (6.0-8.3) gm/dl Albumin (3.4-5.0) gm/dl Globulin (2.5-4.0) gm/dl Albumin/Globulin Ratio (0.9-2) SARS-CoV-2, RNA, NAAT NEGATIVE (NEGATIVE) Blood Type AB Positive Blood Type Recheck Antibody Screen NEGATIVE Crossmatch See Detail 08/24/21 08/24/21 08/24/21 Range/Units 10:44 10:44 11:11 WBC (4.8-10.8) K/uL RBC (4.7-6.1) M/uL Hgb (14.0-18.0) g/dL Hct (42-52) % MCV (80-100) fL MCH (25-34) pg MCHC (32-36) g/dL RDW Std Deviation (36.4-46.3) fL RDW Coeff of Supriya (11.5-14.5) % Plt Count (130-400) K/uL MPV (7.4-10.4) fL Immature Gran % (Auto) % Neut % (Auto) % Lymph % (Auto) % Wharton % (Auto) % Eos % (Auto) % Baso % (Auto) % Neut # (Auto) (1.4-6.5) K/uL Lymph # (Auto) (1.2-3.4) K/uL Wharton # (Auto) (0.11-0.59) K/uL Eos # (Auto) (0-0.5) K/uL Baso # (Auto) (0-0.2) K/uL Immature Gran # (Auto) (0.00-0.02) K/uL PT 10.3 (9.0-12.0) Seconds INR 1.0 (0.9-1.1) APTT 26.2 (21.0-31.0) Seconds PTT Ratio 1.0 Sodium 138 (136-145) mmol/L Potassium 3.9 (3.5-5.1) mmol/L Chloride 105 (98-107) mmol/L Carbon Dioxide 27 (21-32) mmol/L Anion Gap 6 (3-11) BUN 19 (6-23) mg/dl Creatinine 1.84 H D (0.6-1.4) mg/dl Est Cr Clr Drug Dosing 50.4 ml/min Est GFR ( Amer) 46.5 ml/min Est GFR (Non-Af Amer) 40.1 ml/min BUN/Creatinine Ratio 10.3 (10-20) Glucose 109 H (70-99(Fasting)) mg/dl Calcium 9.7 (8.5-10.1) mg/dl Total Bilirubin 1.5 H (0.2-1.0) mg/dl AST 16 (13-39) U/L ALT 16 (7-52) U/L Alkaline Phosphatase 57 (34-104) U/L Total Protein 6.7 (6.0-8.3) gm/dl Albumin 4.1 (3.4-5.0) gm/dl Globulin 2.6 (2.5-4.0) gm/dl Albumin/Globulin Ratio 1.6 (0.9-2) SARS-CoV-2, RNA, NAAT (NEGATIVE) Blood Type Blood Type Recheck AB Positive Antibody Screen Crossmatch Administered Medications Hydromorphone HCl (Hydromorphone Inj 0.5 Mg/0.5 Ml Syr) 0.5 mg IV Q15M PRN PRN Reason: Pain Stop: 09/07/21 11:02 Last Admin: 08/24/21 11:26 Dose: 0.5 mg Documented by: [id number] Discontinued Medications Sodium Chloride (Nss 1000ml) 1,000 mls @ 125 mls/hr IV .Q8H STA Stop: 08/24/21 19:29 Last Admin: 08/24/21 13:23 Dose: Not Given Documented by: [id number] Sodium Chloride (Nss 1000ml) 500 mls @ 999 mls/hr IV .Q31M ONE Stop: 08/24/21 12:00 Last Infusion: 08/24/21 12:14 Dose: 0 mls/hr Documented by: [id number] Admin: 08/24/21 11:40 Dose: 999 mls/hr Documented by: [id number] Discharge Plan Visit Data Chief Complaint: Kidney Stone Stated Complaint: R SIDE KIDNEY STONE/CALLED BY NURSE TO COME BACK ED Provider: Oren Ellison Discharge Problem: Kidney hematoma, Ureterolithiasis, Retroperitoneal bleeding, Acute right flank pain Forms Stand Alone Forms: [employer] Prescriptions Prescriptions: No Action tamsulosin 0.4 mg capsule 0.4 mg PO HS Qty: 30 RF: 0 oxycodone 5 mg tablet 5 mg PO BID PRN (Reason: pain) Qty: 10 RF: 0 multivitamin Tablet 1 tab PO QPM RF: 0 Referrals Referrals: Uzair Dalal MD [Primary Care Provider] -
[2021-08-24] MEDS ORDERED: ONDANSETRON INJ 2 MG/ML 2 ML VIAL IV PRN (13:04)
[2021-08-24] MEDS ORDERED: oxyCODONE HCL IR 5 MG TAB (IMMEDIATE RELEASE) PO PRN (13:04)
--- NOTE | 2021-08-24 13:04 | History & Physical Report ---
Date of Service August 24, 2021 Assessment & Plan (1) Kidney hematoma: Plan: Subcapsular hematoma likely related to recent ESWL. He is currently hemodynamically stable and lab work is reassuring. We will plan to trend CBC. No role for further intervention at this point. If he decompensates would consider transfer for embolization. We imaging or (2) Acute right flank pain: Plan: Managing well with Tylenol, ketorolac, narcotics for breakthrough. We will continue this regimen. (3) Ureterolithiasis: Plan: On the recent CT, stones removed from the right kidney into the ureter. With the recent ESWL, hopefully these are small enough that they can pass spontaneously. He had a bad experience with ureteroscopy and stent placement in the past hopefully we can avoid this type of intervention for him. (4) Acute kidney injury: Plan: Creatinine mildly elevated. This is likely related to dehydration/prerenal etiology. There may be a component of compression from subcapsular hematoma or obstruction from right ureteral stone. We will keep him adequately hydrated and monitor for now. Plan: Admit to urology service Serial CBC (every 6 hours) Monitor BMP for renal function Pain control Tylenol, ketorolac, narcotics for breakthrough SCDs for DVT prophylaxis History of Present Illness Primary Care Provider: Uzair Dalal MD This is a 56-year-old male with history of nephrolithiasis. He underwent ESWL on 08/23/2021 for a right-sided renal stone. He was fairly comfortable after the procedure, however called the urology office that afternoon with increasing pain. He was sent a prescription for some extra pain medicine and given return precautions for the emergency department. He presented to the ED later that evening where a CT scan was performed. The initial read made note of movement of the stone and associated hydronephrosis. His pain was controlled and he was discharged home, however in the morning the CT scan was over-read indicating a subcapsular hematoma on the right side. He was called back to the emergency department for further evaluation. Urology was consulted for assistance with management. At the bedside he appears to have pain well controlled. He has been making urine well and he denies any significant blood or clots within the urine. He has not passed any stone fragments yet. He is having pain in the right flank and some pain extending down toward the right groin as well. He denies nausea/vomiting, he denies fevers/chills. Lab work from the ED was notable for slight decrease in his hemoglobin (14.4 on 08/21 down to 13.8 on 08/24) creatinine is mildly elevated at 1.84. I reviewed the images from his CT scan. He has 2 kidneys. There are some small, nonobstructing stones in the left kidney up to approximately 4 mm in diameter. The stone in the right kidney has moved into the proximal ureter and there is mild associated hydronephrosis. There appears to be a subcapsular hematoma of the right kidney with some perinephric stranding. CT scan was performed without contrast so active extravasation cannot be appreciated. His bladder and prostate appear unremarkable. Family history noncontributory Allergies Allergy/AdvReac Type Severity Reaction Status Date / Time No Known Allergies Allergy Mild Verified 08/23/21 06:18 Home Medications Medication Instructions Recorded Confirmed Type multivitamin 1 tab PO QPM 04/17/21 08/23/21 History oxycodone 5 mg tablet 5 mg PO BID PRN #10 tab 08/23/21 Rx tamsulosin 0.4 mg capsule 0.4 mg PO HS #30 cap 08/23/21 Rx Past Med/Surg History Medical History Borderline hypertension no medication Chronic back pain ongoing History of colon polyps History of COVID-19 03/2021; sore throat, congestion, chills; resolved. Hx of gastroesophageal reflux (GERD) Kidney calculi left side "cleaned out" Dr to "clean out" right side on 08/02. Surgical History History of colonoscopy History of cystoscopy Cystoscopy, Ureteronephroscopy, Left Ureteral Dilation, Laser Destruction of the Stone, Left Insertion Stent Catheter History of esophagogastroduodenoscopy (EGD) Family History Other No family history of adverse response to anesthesia No significant family history Social History Smoking Status: Never smoker Tobacco Type: Cigars Cigarettes Per Day: cigars prn; Second Hand Exposure: No; Hx Alcohol Use: No Hx Substance Use: No Preferred Language: Lao Communication Ability: Effective Ob/Gyn Physician Required: No Beliefs That Will Affect Care: None Current Living Situation: Alone Feels Safe at Home: Yes Assistive Devices: None Review of Systems 14 point review of systems negative except for otherwise indicated. Fatigued, wants to sleep + as per Subjective / HPI (Flank pain) Physical Exam Constitutional: well developed and well nourished; no acute distress Eyes: + anicteric sclerae; pupils not irregular Respiratory: normal respiratory effort; no respiratory distress, does not use accessory muscles and no cough Cardiovascular: well perfused Gastrointestinal (Abdomen): Inspection/Auscultation: abdomen not distended Musculoskeletal: Extremities: extremities normal to inspection Skin: normal turgor; no rashes and no lesions Neurologic: moves all extremities and awake Psychiatric: Orientation: alert and oriented x 3 Results & Data ([facility]) Vital Signs (Past 12 Hours) Vital Signs Temp Pulse Pulse Resp BP Pulse Ox 08/24/21 12:28 70 18 98 08/24/21 10:21 36.4 C L 78 20 136/85 94 PG Care Time/CCT Total # of Minutes Spent Total Time Spent with Patient: Total time spent is greater than 50% in coordination of care (as documented) at patient's floor/unit and/or counseling patient: Coding Level of Care Code 34500 Initial Inpt Care Lvl 2 Diagnoses Kidney hematoma S37.019A Acute right flank pain R10.9 Ureterolithiasis N20.1 Acute kidney injury N17.9
[2021-08-24] MEDS ORDERED: ZOLPIDEM TARTRATE 5 MG TAB PO PRN (13:12)
[2021-08-24 14:36] LABS: Appearance Urine Clear (Clear); Bacteria Urine Automated Negative (Negative); Bilirubin Urine Negative (Negative); Blood Urine 3+ (Negative); Color Urine Orange; Epithelial Cell Urine Auto 0-5 /lpf (0-5); Glucose Urine UA Negative (Negative); Ketones Urine Trace (Negative); Leukocyte Esterase Urine Negative (Negative); Nitrite Urine Negative (Negative); Protein Urine Negative (Negative); RBC Urine Automated >30 /hpf (0-4); Urobilinogen Urine Negative (Negative); pH Urine 5.5 (4.5-7.5)
[2021-08-24 16:12] LABS: Hemoglobin 13.2 g/dL (14.0-18.0); Mean Corpuscular Hemoglobin 28.8 pg (25-34); Mean Corpuscular Volume 87.3 fL (80-100); Mean Platelet Volume 9.5 fL (7.4-10.4); Platelet Count 168 K/uL (130-400); RDW Coefficient of Variation 13.2 % (11.5-14.5); RDW Standard Deviation 42.5 fL (36.4-46.3); Red Blood Count 4.58 M/uL (4.7-6.1); White Blood Count 10.91 K/uL (4.8-10.8)
[2021-08-24] MEDS: LACTATED RINGER'S 1,000 ML IV SCH (16:34)
[2021-08-24] MEDS ORDERED: DOCUSATE SODIUM 100 MG CAP PO ONE (16:57)
[2021-08-24] MEDS: ACETAMINOPHEN 325 MG TAB PO SCH ×2 (17:43→23:08)
[2021-08-24] MEDS: POLYETHYLENE (MIRALAX) 17 GM PACK PO PRN (17:43)
[2021-08-24] MEDS ORDERED: TAMSULOSIN HCL 0.4 MG CAP PO SCH (21:00)
[2021-08-24 23:06] LABS: Hematocrit (blood only) 38.3 % (42-52); Hemoglobin 12.6 g/dL (14.0-18.0); Mean Corpuscular Hemoglobin 28.8 pg (25-34); Mean Corpuscular Hgb Conc 32.9 g/dL (32-36); Mean Corpuscular Volume 87.6 fL (80-100); Mean Platelet Volume 9.8 fL (7.4-10.4); Platelet Count 173 K/uL (130-400); RDW Coefficient of Variation 13.3 % (11.5-14.5); RDW Standard Deviation 42.5 fL (36.4-46.3); Red Blood Count 4.37 M/uL (4.7-6.1); White Blood Count 11.52 K/uL (4.8-10.8)
[2021-08-25] MEDS: LACTATED RINGER'S 1,000 ML IV SCH (04:24)
[2021-08-25 04:53] LABS: Hematocrit (blood only) 39.1 % (42-52); Mean Corpuscular Hgb Conc 33.2 g/dL (32-36); Mean Corpuscular Volume 87.1 fL (80-100); Mean Platelet Volume 9.8 fL (7.4-10.4); Platelet Count 163 K/uL (130-400); RDW Coefficient of Variation 13.1 % (11.5-14.5); Red Blood Count 4.49 M/uL (4.7-6.1); White Blood Count 11.22 K/uL (4.8-10.8)
[2021-08-25] MEDS: ACETAMINOPHEN 325 MG TAB PO SCH ×2 (04:59→11:18)
[2021-08-25] MEDS: POLYETHYLENE (MIRALAX) 17 GM PACK PO PRN (05:03)
[2021-08-25 05:24] LABS: BUN Creatinine Ratio 9.4 (10-20); Calcium 8.7 mg/dl (8.5-10.1); Creatinine Clr Calc Pharmacy 51.6 ml/min; Est GFR (African American) 47.7 ml/min; Est GFR (Non-African American) 41.2 ml/min; Potassium 3.8 mmol/L (3.5-5.1)
--- NOTE | 2021-08-25 09:03 | Urology Progress Note ---
Date of Service August 25, 2021 Assessment & Plan (1) Acute kidney injury: Plan: Creatinine stable from yesterday, continue to hold off on NSAIDs or nephrotoxins. Continuing gentle hydration with IV fluids. (2) Kidney hematoma: Plan: Hemoglobin trend 14.4 13.8 12.6 13.0. Recheck pending at 10:00 this morning, if this is stable and pain is controlled we will potentially discuss discharge home. He is not having any hematuria. (3) Acute right flank pain: Plan: Likely related to combination of passing stone fragments and retroperitoneal hematoma. Managing with Tylenol, as needed oxycodone and breakthrough Dilaudid. Expect this will gradually improve with time and stone passage. Admission and Anticipated Discharge Date Admission Date: August 24, 2021 Subjective Feeling okay Still having some pain Denies nausea or vomiting, tolerating diet without any trouble Has not had bowel movement in a couple days Is not up and ambulating very much. Has not passed any large stone fragments yet Review of Systems Review of Systems: 14 point review of systems negative except for otherwise indicated. Physical Exam Physical Exam: Well-appearing, NAD Respiratory: Breathing comfortably on room air, no audible wheezing Gastrointestinal (Abdomen): Soft, mild right-sided tenderness to palpation, nonperitonitic, no bruising appreciated Results & Data ([facility]) Vital Signs (Past 12 Hours) Vital Signs Temp Pulse Resp BP Pulse Ox 08/25/21 06:43 37.5 C 78 16 143/84 H 96 PG Care Time/CCT Total # of Minutes Spent Total Time Spent with Patient: Total time spent is greater than 50% in coordination of care (as documented) at patient's floor/unit and/or counseling patient: Coding Level of Care Code 54115 Subseq Hosp Care Lvl 1 Diagnoses Acute kidney injury N17.9 Kidney hematoma S37.019A Acute right flank pain R10.9
[2021-08-25 11:13] LABS: Hematocrit (blood only) 38.8 % (42-52); Mean Corpuscular Hgb Conc 33.5 g/dL (32-36); Mean Corpuscular Volume 86.6 fL (80-100); Mean Platelet Volume 9.8 fL (7.4-10.4); Platelet Count 171 K/uL (130-400); RDW Coefficient of Variation 13.2 % (11.5-14.5); RDW Standard Deviation 41.9 fL (36.4-46.3); Red Blood Count 4.48 M/uL (4.7-6.1); White Blood Count 12.07 K/uL (4.8-10.8)
--- NOTE | 2021-08-25 11:32 | Discharge Summary ---
Date of Service August 25, 2021 Admission HPI Per Admitting Provider This is a 56-year-old male with history of nephrolithiasis. He underwent ESWL on 08/23/2021 for a right-sided renal stone. He was fairly comfortable after the procedure, however called the urology office that afternoon with increasing pain. He was sent a prescription for some extra pain medicine and given return precautions for the emergency department. He presented to the ED later that evening where a CT scan was performed. The initial read made note of movement of the stone and associated hydronephrosis. His pain was controlled and he was discharged home, however in the morning the CT scan was over-read indicating a subcapsular hematoma on the right side. He was called back to the emergency department for further evaluation. Urology was consulted for assistance with management. At the bedside he appears to have pain well controlled. He has been making urine well and he denies any significant blood or clots within the urine. He has not passed any stone fragments yet. He is having pain in the right flank and some pain extending down toward the right groin as well. He denies nausea/vomiting, he denies fevers/chills. Lab work from the ED was notable for slight decrease in his hemoglobin (14.4 on 08/21 down to 13.8 on 08/24) creatinine is mildly elevated at 1.84. I reviewed the images from his CT scan. He has 2 kidneys. There are some small, nonobstructing stones in the left kidney up to approximately 4 mm in diameter. The stone in the right kidney has moved into the proximal ureter and there is mild associated hydronephrosis. There appears to be a subcapsular hematoma of the right kidney with some perinephric stranding. CT scan was performed without contrast so active extravasation cannot be appreciated. His bladder and prostate appear unremarkable. Family history noncontributory Admission Exam (Per Admitting) Constitutional Constitutional: well developed and well nourished; no acute distress Eyes: + anicteric sclerae; pupils not irregula r Respiratory: normal respiratory effort; no respiratory distress, does not use accessory muscles and no cough Cardiovascular: well perfused Gastrointestinal (Abdomen): Inspection/Auscultation: abdomen not distended Musculoskeletal: Extremities: extremities normal to inspection Skin: normal turgor; no rashes and no lesions Neurologic: moves all extremities and awake Psychiatric: Orientation: alert and oriented x 3 Discharge Data Consultations 08/24/21 11:54 ED Decision to Admit Stat Hospital Course (1) Acute kidney injury: Renal function was monitored while he was in the hospital. Creatinine was somewhat elevated but was stable prior to discharge. We will plan to follow-up as an outpatient. (2) Acute right flank pain: Pain was controlled with Tylenol, tamsulosin, using oxycodone and Dilaudid for breakthrough pain. He had a regimen similar to this for discharge. We discussed that there would likely be some persistent pain while he passed stone fragments and while the subcapsular hematoma reabsorbed. (3) Kidney hematoma: Subcapsular hematoma was identified on CT scan. He was admitted for close monitoring. Hemoglobin initially decreased slightly but subsequently increased and then remained stable. He was not having any blood in the urine and pain was relatively stable. His vital signs remained within normal limits. He was discharged home with plans to monitor closely and for pain control. Coding Level of Care Code D/C DAY MANAGEMENT <30 MINS Diagnoses Acute kidney injury N17.9 Acute right flank pain R10.9 Kidney hematoma S37.019A
== END 2021-08-25 12:04 | disposition home or self-care (01) | DRG 920 ==
LOC: ED 10:10 → 3N 13:04

== ENCOUNTER 2021-08-31 20:32 | Inpatient (IN) ==
[2021-08-31] MEDS ORDERED: MoRPHine SULFATE 4 MG/ML 1 ML CARP\\VIAL IV STA (20:52)
[2021-08-31] MEDS ORDERED: ONDANSETRON INJ 2 MG/ML 2 ML VIAL IV STA (20:52)
[2021-08-31] MEDS ORDERED: SODIUM CHLORIDE 0.9% 1000ML 1,000 ML IV ONE (20:52)
[2021-08-31 21:13] LABS: Basophils # (auto) 0.02 K/uL (0-0.2); Basophils % (auto) 0.2 %; Eosinophils # (auto) 0.09 K/uL (0-0.5); Eosinophils % (auto) 0.8 %; Hematocrit (blood only) 36.7 % (42-52); Hemoglobin 12.4 g/dL (14.0-18.0); Immature Granulocytes # (auto) 0.03 K/uL (0.00-0.02); Immature Granulocytes % (auto) 0.3 %; Lymphocytes # (auto) 1.22 K/uL (1.2-3.4); Lymphocytes % (auto) 10.6 %; Mean Corpuscular Hemoglobin 29.3 pg (25-34); Mean Corpuscular Hgb Conc 33.8 g/dL (32-36); Mean Corpuscular Volume 86.8 fL (80-100); Mean Platelet Volume 9.2 fL (7.4-10.4); Monocytes # (auto) 0.82 K/uL (0.11-0.59); Monocytes % (auto) 7.1 %; Neutrophils # (auto) 9.35 K/uL (1.4-6.5); Platelet Count 304 K/uL (130-400); RDW Coefficient of Variation 12.8 % (11.5-14.5); RDW Standard Deviation 41.1 fL (36.4-46.3); Red Blood Count 4.23 M/uL (4.7-6.1); White Blood Count 11.53 K/uL (4.8-10.8)
[2021-08-31 21:29] LABS: BUN Creatinine Ratio 12.1 (10-20); Calcium 8.9 mg/dl (8.5-10.1); Est GFR (Non-African American) 43.2 ml/min; Potassium 4.1 mmol/L (3.5-5.1)
--- NOTE | 2021-08-31 22:04 | CT Scan Report ---
CT abd pelvis wo con CLINICAL HISTORY: flank pain TECHNIQUE: Helical axial images of the abdomen and pelvis were obtained. Automated dose lowering tech niques and/or adjustment according to patient size were utilized for this exam. This exam was perfor med without intravenous contrast. CT DOSE: 572.25 mGy.cm COMPARISON: Comparison is made to CT abdomen pelvis 08/26/2021 FINDINGS: Lower chest: No acute abnormality Liver: Unremarkable. No focal lesions are seen. Gallbladder and biliary tree: No calcified gallstones. Normal caliber wall. No intra- or extrahepatic biliary ductal dilation. Pancreas: Unremarkable, no focal lesions. Spleen: Unremarkable. Adrenals: Unremarkable. Kidneys and ureters: Subcapsular hematoma of the right kidney is again seen. Redemonstration of right hydroureteronephrosis with mid to distal ureteric stone measuring 4 mm. Nonobstructive stones are se en on the left. Bladder: Unremarkable. Reproductive organs: Unremarkable. Bowel: Diverticulosis is seen without evidence of diverticulitis. The appendix is normal. Lymph nodes Retroperitoneal: Unremarkable. Mesenteric: Unremarkable. Pelvic: Unremarkable. Peritoneum: Retroperitoneal stranding is seen about the right kidney and ureter with some extension i nto the right paracolic gutter. Vessels: Atherosclerotic calcifications are seen. Abdominal wall: Left fat containing inguinal hernia. Bones: Mild degenerative changes are seen. IMPRESSION: 1. Right hydroureteronephrosis is seen with obstructive stone in the mid to distal ureter, this is d ifferent from the stone seen on the prior exam. This likely represents new ureterolithiasis in this p atient status post recent lithotripsy. 2. Stable subcapsular hemorrhage of the right kidney. ACT 112: Negative or not required by law. Electronically signed by: Alexis Flores M.D. 08/31/2021 10:02 PM
[2021-08-31 22:37] LABS: Appearance Urine Clear (Clear); Bacteria Urine Automated Negative (Negative); Bilirubin Urine Negative (Negative); Blood Urine 1+ (Negative); Cast Urine Automated 0 /lpf (0-5); Color Urine Yellow; Epithelial Cell Urine Auto 0-5 /lpf (0-5); Glucose Urine UA Negative (Negative); Ketones Urine Negative (Negative); Leukocyte Esterase Urine Negative (Negative); Nitrite Urine Negative (Negative); Specific Gravity Urine 1.018 (1.000-1.030); Urobilinogen Urine Negative (Negative); WBC Urine Automated 0 /hpf (0-5); pH Urine 7.5 (4.5-7.5)
[2021-08-31 22:39] LABS: Protein Urine Trace (Negative)
[2021-08-31] MEDS ORDERED: HYDROmorphone INJ 1 MG/ML SYRINGE IV STA (22:56)
--- NOTE | 2021-08-31 23:53 | History & Physical Report ---
Date of Service August 31, 2021 Assessment & Plan (1) Ureterolithiasis: Plan: 56 year old male w/ PMHx of bilat nephrolithiasis (L ureteral stent 04/2021, since removed) who presents for continued severe R flank pain secondary to 4mm obstructing R mid to distal ureteral stone. S/p R lithotripsy on 08/23/21. 08/24 CT abd excerpted impression: Mild right-sided hydroureteronephrosis secondary to two subadjacent calculi within the right ureter at the level of L3 measuring up to 4 mm. 08/25 CT abd excerpted impression: Again seen are 2 obstructing calculi in the proximal to mid right ureter which measure up to 5 mm. 08/26 CT abd excerpted findings: Redemonstration of right hydroureteronephrosis with mid to distal ureteric stone measuring 4 mm. - urology consulted, per ED discussion, considering stent placement. - continue Flomax and IV fluids - UA reviewed; no bacteria, wbc, nitrites, or leuk esterase - pain and nausea control - per patient, is voiding, so will defer grace placement. During 08/26/21 ED visit, was prescribed 10 days of PO cipro in setting of fever of which 5 days were completed; 1 day of interruption. 08/26 Blood cultures negative. PO cipro course will be continued; lower suspicion for UTI, but CT abd w/ R perinephric stranding; unclear if mild pyelo vs from the hematoma. Monitor clinically for signs of infection. (2) Acute kidney injury: Plan: Cr 2.1 at admission. baseline 1.16. - follow BMP - maintenance fluids - considered obstructive etiology; low threshold for grace placement (3) Kidney hematoma: Plan: - stable per CT - hold dvt chemoppx (4) Anemia: Plan: - mild, normocytic - kidney hematoma/hemorrhage may be contributory - baseline Hb 14s. follow cbc (5) Hydronephrosis due to obstruction of ureter: Plan: - see above (6) Kidney calculi: Plan: - see above (7) Elevated blood pressure reading: Plan: - asymptomatic. outpatient follow up Plan: FEN/GI: NPO. NSS 120mL/hr ppx: SCDs only. No chemoppx in setting of subcapsular hematoma. code: full dispo: med surg History of Present Illness Chief Complaint: right flank pain Primary Care Provider: Uzair Dalal MD 56 year old male w/ PMHx of bilat nephrolithiasis (L ureteral stent 04/2021, since removed) who presents for continued severe R flank pain. After the R lithotripsy procedure on 08/23/21, patient went home, and returned for admission from 08/23/21-08/25/21 for R renal subcapsular hematoma on CT overread. There was slight migration of his ureteral stone and the plan was for medical management. He returns this admission for 11/09 constant nonradiating flank pain w/o relief from outpatient oxycodone and tylenol. Currently pain is minimal after a dose of Dilaudid 1mg IV. He denies other symptoms such as fever, chills, shortness of breath, constipation, or nausea/vomiting. ED course: morphine 4mg IV, zofran, 1L NSS bolus, Dilaudid 1mg IV. Informed by ED provider that team is aware of patients R subcapular hematoma; no acute concern. Hold DVT chemoprophylaxis. Allergies Allergy/AdvReac Type Severity Reaction Status Date / Time No Known Allergies Allergy Mild Verified 08/31/21 21:50 Home Medications Medication Instructions Recorded Confirmed Type multivitamin 1 tab PO QPM 04/17/21 08/31/21 History oxycodone 5 mg tablet 5 mg PO BID PRN #10 tab 08/23/21 08/31/21 Rx tamsulosin 0.4 mg capsule 0.4 mg PO HS #30 cap 08/23/21 08/31/21 Rx Saccharomyces boulardii 250 mg 250 mg PO BID #20 cap 08/26/21 08/31/21 Rx capsule (Florastor) ciprofloxacin HCl 500 mg tablet 500 mg PO Q12H #20 tab 08/26/21 08/31/21 Rx ondansetron 4 mg disintegrating 4 mg PO Q6H PRN #14 tab 08/26/21 08/31/21 Rx tablet mupirocin 2 % topical ointment 1 applic TOPICAL TID 08/31/21 08/31/21 History Past Med/Surg History Medical History (Updated 09/01/21 @ 02:26 by Adan Vazquez MD) Acute kidney injury Borderline hypertension no medication Chronic back pain ongoing History of colon polyps History of COVID-19 03/2021; sore throat, congestion, chills; resolved. Hx of gastroesophageal reflux (GERD) Kidney calculi left side "cleaned out" Dr to "clean out" right side on 08/02. Kidney hematoma Retroperitoneal bleeding Surgical History History of colonoscopy History of cystoscopy Cystoscopy, Ureteronephroscopy, Left Ureteral Dilation, Laser Destruction of the Stone, Left Insertion Stent Catheter History of esophagogastroduodenoscopy (EGD) Family History Other No family history of adverse response to anesthesia No significant family history Social History (Updated 09/01/21 @ 00:13 by Adan Vazquez MD) Smoking Status: Current some day smoker Tobacco Type: Cigars Cigarettes Per Day: does not inhale; Second Hand Exposure: No; Hx Alcohol Use: Yes Alcohol Intake Frequency: Monthly or Less Hx Substance Use: No Preferred Language: Panamanian Communication Ability: Effective Public Address Servicer Required: No Beliefs That Will Affect Care: None Current Living Situation: Alone Feels Safe at Home: Yes Safety Concerns: Feels Safe At This Time Assistive Devices: Glasses Review of Systems Review of Systems: All systems reviewed & are unremarkable except as noted in HPI & below Physical Exam Physical Exam: General: Grossly A&O. NAD. Cooperative. Conversational. HEENT: Atraumatic, normocephalic. EOMI. No cervical lymphadenopathy. Pulm: CTAB. -wheezes, -rales, -rhonchi. No respiratory distress. Cardiac: RRR, -mrg. Radial pulses intact and symmetrical. Abdominal: RUQ and R flank ttp. No rebounding or guarding. Abd is soft, nondistended. Back: + R lower CVA ttp. Msk: Moving all extremities. Integ: Warm, dry, intact. Results & Data Results & Data ([facility]) Vital Signs (Past 12 Hours) Vital Signs Temp Pulse Resp BP BP Pulse Ox 08/31/21 22:06 87 18 157/93 H 97 08/31/21 20:41 36.6 C 103 H 20 157/111 H 97 Laboratory Results slight leukocytosis 11.52, persisted x 1 wk. imani 1.73. baseline 1.16. UA w/ trace protein and 5-10 rbc. Neg for bact or wbc. 08/26 blood cultures neg. CBC 08/31/21 Range/Units 20:56 WBC 11.53 H (4.8-10.8) K/uL RBC 4.23 L (4.7-6.1) M/uL Hgb 12.4 L (14.0-18.0) g/dL Hct 36.7 L (42-52) % Plt Count 304 (130-400) K/uL Neut # (Auto) 9.35 H (1.4-6.5) K/uL Lymph # (Auto) 1.22 (1.2-3.4) K/uL [place] # (Auto) 0.82 H (0.11-0.59) K/uL Eos # (Auto) 0.09 (0-0.5) K/uL Baso # (Auto) 0.02 (0-0.2) K/uL Comprehensive Metabolic Panel 08/31/21 Range/Units 20:56 Sodium 138 (136-145) mmol/L Potassium 4.1 (3.5-5.1) mmol/L Chloride 107 (98-107) mmol/L Carbon Dioxide 25 (21-32) mmol/L BUN 21 (6-23) mg/dl Creatinine 1.73 H (0.6-1.4) mg/dl Glucose 160 H (70-99(Fasting)) mg/dl Calcium 8.9 (8.5-10.1) mg/dl Intake and Output 08/31/21 08/31/21 09/01/21 14:59 22:59 06:59 Intake Total 1000 / 1000 Balance 1000 / 1000 Intake: IV 1000 / 1000 Sodium Chloride 0.9% 1000ML 1, 1000 / 1000 000 ml @ 999 mls/hr IV .Q1H1M ONE Rx#:[id number] Other: Weight 93.8 kg Weight Measurement Method Chair Scale Patient Weight 09/01/21 06:59 Weight 93.8 kg Diagnostic Findings Abdomen/Pelvis CT 08/31/21 21:23 CT abd pelvis wo con CLINICAL HISTORY: flank pain TECHNIQUE: Helical axial images of the abdomen and pelvis were obtained. Automated dose lowering techniques and/or adjustment according to patient size were utilized for this exam. This exam was performed without intravenous contrast. CT DOSE: 572.25 mGy.cm COMPARISON: Comparison is made to CT abdomen pelvis 08/26/2021 FINDINGS: Lower chest: No acute abnormality Liver: Unremarkable. No focal lesions are seen. Gallbladder and biliary tree: No calcified gallstones. Normal caliber wall. No intra- or extrahepatic biliary ductal dilation. Pancreas: Unremarkable, no focal lesions. Spleen: Unremarkable. Adrenals: Unremarkable. Kidneys and ureters: Subcapsular hematoma of the right kidney is again seen. Redemonstration of right hydroureteronephrosis with mid to distal ureteric stone measuring 4 mm. Nonobstructive stones are seen on the left. Bladder: Unremarkable. Reproductive organs: Unremarkable. Bowel: Diverticulosis is seen without evidence of diverticulitis. The appendix is normal. Lymph nodes Retroperitoneal: Unremarkable. Mesenteric: Unremarkable. Pelvic: Unremarkable. Peritoneum: Retroperitoneal stranding is seen about the right kidney and ureter with some extension into the right paracolic gutter. Vessels: Atherosclerotic calcifications are seen. Abdominal wall: Left fat containing inguinal hernia. Bones: Mild degenerative changes are seen. IMPRESSION: 1. Right hydroureteronephrosis is seen with obstructive stone in the mid to distal ureter, this is different from the stone seen on the prior exam. This likely represents new ureterolithiasis in this patient status post recent lithotripsy. 2. Stable subcapsular hemorrhage of the right kidney. ACT 112: Negative or not required by law. Electronically signed by: Alexis Flores M.D. 08/31/2021 10:02 PM Code Status & VTE Plan Code Status full VTE Prophylaxis Plan VTE Prophylaxis will be ordered: Yes Supervising Physician Co-Signing Physician Notes Pt seen/examined in conjunction with resident MD Adan Vazquez. Orders and plan of admission formulated with resident. 56 y/o M Hx nephrolithiasis, recently required a L ureteral stent. Presents with severe R flank pain and a low-grade fever. CT abdomen demonstrated right hydroureteronephrosis with obstructive stone in the mid to distal ureter and a stable subcapsular hemorrhage of the right kidney. Labs are notable for renal impairment which may be chronic, and leukocytosis. O/E General: AAO x 3, no distress ENT: No erythema or exudates, no thrush Eyes: BRYAN, EOMI Head and neck: Normocephalic, atraumatic, No JVD, neck is supple. Chest/heart: Nontender, S1,2, RRR, no murmurs, no gallops Lungs: CTAB, no wheezing or crackles Abdomen: Nontender, nondistended, BS+. BL flank tenderness. Neuro: AAO x 3, speech is clear, no unilateral weakness or loss of sensation, coordination intact Musculoskeletal: No joint inflammation, muscle tenderness, FROM Skin: No acute rashes or ulcers Extremities: No clubbing, cyanosis, edema A/P 1) Obstructing calculus - IVF, pain control, abx prided. Urology to see and he may need an additional stent. 2) Subscapular hematoma - per urology, this is not of immediate concern. 3) Renal impairment - baseline is not clear. Provided with IVF - trend BMP. 4) UTI - likely proximal to obstruction - Ceftriaxone provided Total time for this admission including review of labs, meds, imaging, records, discussion with pt and ER attending - 45 min Resident Activity Tracking Resident Involvement: Resident Care Provided Care Provided: Adult Hospital Medicine
--- NOTE | 2021-08-31 23:57 | Emergency Department Note ---
History of Present Illness General Chief Complaint: Flank Pain Stated Complaint: R FLANK PAIN Time Seen by Provider: 08/31/21 20:52 History of Present Illness Provider Complaint: abdominal pain and flank pain Onset (ago): 5 day(s) Pain Consistency: constant Location: RLQ Radiation: R flank Severity: moderate Maximum Pain Intensity: 8 Current Pain Intensity: 8 Quality: + stabbing and + sharp Relieved By: + nothing Exacerbated By: + nothing Context: + history of similar episodes; no foreign travel, no possible food poisoning, no sick contacts, no recent antibiotic use, no recent surgery/procedure or no recent injury Associated Symptoms: + nausea; no vomiting, no diarrhea, no fever, no chills, no constipation, no dysuria, no hematemesis, no hematochezia, no melena, no hematuria, no anorexia, no syncope, no headache, no neck pain and no chest pain Home Medications Medication Instructions Recorded Confirmed Type multivitamin 1 tab PO QPM 04/17/21 08/31/21 History oxycodone 5 mg tablet 5 mg PO BID PRN #10 tab 08/23/21 08/31/21 Rx tamsulosin 0.4 mg capsule 0.4 mg PO HS #30 cap 08/23/21 08/31/21 Rx Saccharomyces boulardii 250 mg 250 mg PO BID #20 cap 08/26/21 08/31/21 Rx capsule (Florastor) ciprofloxacin HCl 500 mg tablet 500 mg PO Q12H #20 tab 08/26/21 08/31/21 Rx ondansetron 4 mg disintegrating 4 mg PO Q6H PRN #14 tab 08/26/21 08/31/21 Rx tablet mupirocin 2 % topical ointment 1 applic TOPICAL TID 08/31/21 08/31/21 History Allergies Allergy/AdvReac Type Severity Reaction Status Date / Time No Known Allergies Allergy Mild Verified 08/31/21 21:50 Past Med/Surg History Medical History Acute kidney injury Borderline hypertension no medication Chronic back pain ongoing History of colon polyps History of COVID-19 03/2021; sore throat, congestion, chills; resolved. Hx of gastroesophageal reflux (GERD) Kidney calculi left side "cleaned out" Dr to "clean out" right side on 6/3. Kidney hematoma Retroperitoneal bleeding Surgical History History of colonoscopy History of cystoscopy Cystoscopy, Ureteronephroscopy, Left Ureteral Dilation, Laser Destruction of the Stone, Left Insertion Stent Catheter History of esophagogastroduodenoscopy (EGD) Family History Other No family history of adverse response to anesthesia No significant family history Social History Smoking Status: Never smoker Tobacco Type: Cigars Cigarettes Per Day: does not inhale; Second Hand Exposure: No; Hx Alcohol Use: Yes Hx Substance Use: No Preferred Language: Maldivian Communication Ability: Effective Brass Sorter Required: No Beliefs That Will Affect Care: None Current Living Situation: Alone Feels Safe at Home: Yes Assistive Devices: Glasses Review of Systems A total of 10 systems reviewed and were otherwise negative Physical Exam Vital Signs: Vital Signs - 24 hr 08/31/21 20:41 08/31/21 22:06 Temperature 36.6 C Temperature Source Temporal Artery Sc an Pulse Rate 103 H 87 Respiratory Rate 20 18 Blood Pressure 157/111 H Blood Pressure [Ri ght Arm] 157/93 H Blood Pressure Lucila n 126 Blood Pressure Lucila n [Right Arm] 114 Blood Pressure Pos ition Sitting Pulse Oximetry 97 97 Oxygen Delivery Me thod Room Air Nasal Cannula Sepsis Recent Feve r Within 48 Hours No Sepsis New/Unexpla ined Change in Men thanh Status N/A Sepsis Action Take n by Nursing No Action Required Physical Exam: Physical Exam GENERAL: He is oriented to person, place, and time. He appears well-developed and well-nourished. He does not appear distressed. HENT: Exam performed. - Head: Normocephalic and atraumatic. - Right Ear: External ear normal. No mastoid tenderness. - Left Ear: External ear normal. No mastoid tenderness. - Mouth/Throat: The oropharynx is clear and moist. No trismus in the jaw. No dental abscesses or uvula swelling. No oropharyngeal exudate or tonsillar abscesses. EYES: Conjunctivae and EOM are normal. Pupils are equal, round, and reactive to light. Right eye exhibits no discharge. Left eye exhibits no discharge. No scleral icterus. NECK: Normal range of motion. Neck supple. No JVD present. No spinous process tenderness present. No carotid bruit present. No rigidity. No tracheal deviation and normal range of motion present. No Brudzinski's sign and no Kernig's sign noted. CV: Normal rate, regular rhythm, normal heart sounds and intact distal pulses. There is no peripheral edema. Palpable radial pulses bue. PULM/CHEST: Effort normal and breath sounds normal. No respiratory distress. No stridor. He has no wheezes. He has no rales. - Chest Wall: He exhibits no tenderness. ABD: The abdomen is soft. Bowel sounds are normal. He has no distension. No mass is present. There is tenderness to pain on palpation of the right lower quadrant. There is no rebound, no guarding, no Montiel's sign. Rovsig negative. Right-sided CVA tenderness. MUSC/SKEL: Normal range of motion. There is no peripheral edema, tenderness or deformity. LYMPH: No cervical adenopathy. NEURO: He is alert and oriented to person, place, and time. He has normal strength. No cranial nerve deficit or sensory deficit. Coordination and gait normal. GCS eye subscore is 4. GCS verbal subscore is 5. GCS motor subscore is 6. Cerebellar tests wnl. SKIN: Skin is warm and dry. He is not diaphoretic. PSYCH: He has a normal mood and affect. Behavior is normal. Judgment and thought content normal. Course Course 2051: The patient was evaluated in room C5. A complete history and physical exam was performed Cardiac monitoring: An order was placed for continuous cardiac monitoring. The monitor shows a rate of 90 with sinus rhythm EMR reviewed. Patient has extensive history of kidney stones. Patient had lithotripsy done on August 23. He was seen in the emergency department on August 24 and discharged overnight but then came back because CT showed a subscapular hematoma when it was read by staff radiologist. Patient was admitted to the urology service. Patient was discharged on August 25 after his hemoglobin remained stable. August 26 the patient returned to the emergency department was discharged after discussion with urology and a stable subscapular hematoma. 2309: Vital signs stable. Labs show 4 mm kidney stone on the right that appears new with hydronephrosis. Subscapular hematoma stable. However blood cell count 11.5 and hemoglobin of 12.4 down from 13.3 on 04/28/2021. Patient's creatinine was 1.73 down from 2.1 on August 26, 2021. Lactic acid within normal limits. Urinalysis did not show any signs of infection. Discussed the case with Dr. Negron on-call urology and he states that the patient did not feel like he can manage his pain at home and that he can be admitted to the hospital overnight he will evaluate him in the morning for stent placement. Discussed with the patient he states he is having too much pain. Repeat analgesia given to the patient [facility] team will be notified. Administered Medications Discontinued Medications Hydromorphone HCl (Hydromorphone Inj 1 Mg/Ml Syringe) 1 mg IV NOW STA Stop: 08/31/21 22:57 Last Admin: 08/31/21 23:27 Dose: 1 mg Documented by: [id number] Sodium Chloride (Nss 1000ml) 1,000 mls @ 999 mls/hr IV .Q1H1M ONE Stop: 08/31/21 21:52 Last Infusion: 08/31/21 22:10 Dose: 0 mls/hr Documented by: [id number] Admin: 08/31/21 21:06 Dose: 999 mls/hr Documented by: [id number] Morphine Sulfate (Morphine Sulfate 4 Mg/Ml 1 Ml Carp\\Vial) 4 mg IV NOW STA Stop: 08/31/21 20:53 Last Admin: 08/31/21 21:05 Dose: 4 mg Documented by: [id number] Ondansetron HCl (Ondansetron Inj 2 Mg/Ml 2 Ml Vial) 4 mg IV NOW STA Stop: 08/31/21 20:53 Last Admin: 08/31/21 21:05 Dose: 4 mg Documented by: [id number] Medical Decision Making Laboratory Data Result diagrams: 08/31/21 20:56 08/31/21 20:56 Lab Results 08/31/21 08/31/21 08/31/21 Range/Units 20:56 20:56 21:03 WBC 11.53 H (4.8-10.8) K/uL RBC 4.23 L (4.7-6.1) M/uL Hgb 12.4 L (14.0-18.0) g/dL Hct 36.7 L (42-52) % MCV 86.8 (80-100) fL MCH 29.3 (25-34) pg MCHC 33.8 (32-36) g/dL RDW Std Deviation 41.1 (36.4-46.3) fL RDW Coeff of Supriya 12.8 (11.5-14.5) % Plt Count 304 (130-400) K/uL MPV 9.2 (7.4-10.4) fL Immature Gran % (Auto) 0.3 % Neut % (Auto) 81.0 % Lymph % (Auto) 10.6 % Hand % (Auto) 7.1 % Eos % (Auto) 0.8 % Baso % (Auto) 0.2 % Neut # (Auto) 9.35 H (1.4-6.5) K/uL Lymph # (Auto) 1.22 (1.2-3.4) K/uL Hand # (Auto) 0.82 H (0.11-0.59) K/uL Eos # (Auto) 0.09 (0-0.5) K/uL Baso # (Auto) 0.02 (0-0.2) K/uL Immature Gran # (Auto) 0.03 H (0.00-0.02) K/uL Sodium 138 (136-145) mmol/L Potassium 4.1 (3.5-5.1) mmol/L Chloride 107 (98-107) mmol/L Carbon Dioxide 25 (21-32) mmol/L Anion Gap 6 (3-11) BUN 21 (6-23) mg/dl Creatinine 1.73 H (0.6-1.4) mg/dl Est Cr Clr Drug Dosing 53.0 ml/min Est GFR ( Amer) 50.0 ml/min Est GFR (Non-Af Amer) 43.2 ml/min BUN/Creatinine Ratio 12.1 (10-20) Glucose 160 H (70-99(Fasting)) mg/dl Lactate 1.4 (0.4-2.0) mmol/L Calcium 8.9 (8.5-10.1) mg/dl Urine Color Urine Appearance (Clear) Urine pH (4.5-7.5) Ur Specific [place] (1.000-1.030) Urine Protein (Negative) Urine Glucose (UA) (Negative) Urine Ketones (Negative) Urine Blood (Negative) Urine Nitrite (Negative) Urine Bilirubin (Negative) Urine Urobilinogen (Negative) Ur Leukocyte Esterase (Negative) Urine WBC (Auto) (0-5) /hpf Urine RBC (Auto) (0-4) /hpf U Hyaline Cast (Auto) (0-5) /lpf U Epithel Cells (Auto) (0-5) /lpf Urine Bacteria (Auto) (Negative) 08/31/21 Range/Units 22:04 WBC (4.8-10.8) K/uL RBC (4.7-6.1) M/uL Hgb (14.0-18.0) g/dL Hct (42-52) % MCV (80-100) fL MCH (25-34) pg MCHC (32-36) g/dL RDW Std Deviation (36.4-46.3) fL RDW Coeff of Supriya (11.5-14.5) % Plt Count (130-400) K/uL MPV (7.4-10.4) fL Immature Gran % (Auto) % Neut % (Auto) % Lymph % (Auto) % Hand % (Auto) % Eos % (Auto) % Baso % (Auto) % Neut # (Auto) (1.4-6.5) K/uL Lymph # (Auto) (1.2-3.4) K/uL Hand # (Auto) (0.11-0.59) K/uL Eos # (Auto) (0-0.5) K/uL Baso # (Auto) (0-0.2) K/uL Immature Gran # (Auto) (0.00-0.02) K/uL Sodium (136-145) mmol/L Potassium (3.5-5.1) mmol/L Chloride (98-107) mmol/L Carbon Dioxide (21-32) mmol/L Anion Gap (3-11) BUN (6-23) mg/dl Creatinine (0.6-1.4) mg/dl Est Cr Clr Drug Dosing ml/min Est GFR ( Amer) ml/min Est GFR (Non-Af Amer) ml/min BUN/Creatinine Ratio (10-20) Glucose (70-99(Fasting)) mg/dl Lactate (0.4-2.0) mmol/L Calcium (8.5-10.1) mg/dl Urine Color Yellow Urine Appearance Clear (Clear) Urine pH 7.5 (4.5-7.5) Ur Specific [place] 1.018 (1.000-1.030) Urine Protein Trace H (Negative) Urine Glucose (UA) Negative (Negative) Urine Ketones Negative (Negative) Urine Blood 1+ H (Negative) Urine Nitrite Negative (Negative) Urine Bilirubin Negative (Negative) Urine Urobilinogen Negative (Negative) Ur Leukocyte Esterase Negative (Negative) Urine WBC (Auto) 0 (0-5) /hpf Urine RBC (Auto) 5-10 H (0-4) /hpf U Hyaline Cast (Auto) 0 (0-5) /lpf U Epithel Cells (Auto) 0-5 (0-5) /lpf Urine Bacteria (Auto) Negative (Negative) Imaging Data Radiologist's Impression: Abdomen/Pelvis CT 08/31/21 21:23 CT abd pelvis wo con CLINICAL HISTORY: flank pain TECHNIQUE: Helical axial images of the abdomen and pelvis were obtained. Automated dose lowering techniques and/or adjustment according to patient size were utilized for this exam. This exam was performed without intravenous contr ast. CT DOSE: 572.25 mGy.cm COMPARISON: Comparison is made to CT abdomen pelvis 08/26/2021 FINDINGS: Lower chest: No acute abnormality Liver: Unremarkable. No focal lesions are seen. Gallbladder and biliary tree: No calcified gallstones. Normal caliber wall. No intra- or extrahepatic biliary ductal dilation. Pancreas: Unremarkable, no focal lesions. Spleen: Unremarkable. Adrenals: Unremarkable. Kidneys and ureters: Subcapsular hematoma of the right kidney is again seen. Red emonstration of right hydroureteronephrosis with mid to distal ureteric stone measuring 4 mm. Nonobstructive stones are seen on the left. Bladder: Unremarkable. Reproductive organs: Unremarkable. Bowel: Diverticulosis is seen without evidence of diverticulitis. The appendix is normal. Lymph nodes Retroperitoneal: Unremarkable. Mesenteric: Unremarkable. Pelvic: Unremarkable. Peritoneum: Retroperitoneal stranding is seen about the right kidney and ureter with some extension into the right paracolic gutter. Vessels: Atherosclerotic calcifications are seen. Abdominal wall: Left fat containing inguinal hernia. Bones: Mild degenerative changes are seen. IMPRESSION: 1. Right hydroureteronephrosis is seen with obstructive stone in the mid to distal ureter, this is different from the stone seen on the prior exam. This likely represents new ureterolithiasis in this patient status post recent lithotripsy. 2. Stable subcapsular hemorrhage of the right kidney. ACT 112: Negative or not required by law. Electronically signed by: Alexis Flores M.D. 08/31/2021 10:02 PM MDM Narrative 2051: The patient was evaluated in room C5. A complete history and physical exam was performed Cardiac monitoring: An order was placed for continuous cardiac monitoring. The monitor shows a rate of 90 with sinus rhythm EMR reviewed. Patient has extensive history of kidney stones. Patient had lithotripsy done on August 23. He was seen in the emergency department on August 24 and discharged overnight but then came back because CT showed a subscapular hematoma when it was read by staff radiologist. Patient was admitted to the uro logy service. Patient was discharged on August 25 after his hemoglobin remained stable. August 26 the patient returned to the emergency department was discharged after discussion with urology and a stable subscapular hematoma. 2310: Vital signs stable. Labs show 4 mm kidney stone on the right that appears new with hydronephrosis. Subscapular hematoma stable. However blood cell count 11.5 and hemoglobin of 12.4 down from 13.3 on 04/28/2021. Patient's creatinine was 1.73 down from 2.1 on August 26, 2021. Lactic acid within normal limits. Urinalysis did not show any signs of infection. Discussed the case with Dr. Negron on-call urology and he states that the patient did not feel like he can manage his pain at home and that he can be admitted to the hospital overnight he will evaluate him in the morning for stent placement. Discussed with the patient he states he is having too much pain. Repeat analgesia given to the patient patient will be admitted to the [facility] hospitalist team. Dr. Guerin team will be notified. Impression & Plan Hydronephrosis with renal calculous obstruction Discharge Plan Visit Data Chief Complaint: Flank Pain Stated Complaint: R FLANK PAIN Discharge Problem: Hydronephrosis with renal calculous obstruction Patient Disposition: Admitted As Inpatient Forms Stand Alone Forms: [facility] Prescriptions Prescriptions: No Action tamsulosin 0.4 mg capsule 0.4 mg PO HS Qty: 30 RF: 0 oxycodone 5 mg tablet 5 mg PO BID PRN (Reason: pain) Qty: 10 RF: 0 ciprofloxacin HCl 500 mg tablet 500 mg PO Q12H Qty: 20 RF: 0 Saccharomyces boulardii [Florastor] 250 mg capsule 250 mg PO BID Qty: 20 RF: 0 ondansetron 4 mg tablet,disintegrating 4 mg PO Q6H PRN (Reason: nausea and vomiting) Qty: 14 RF: 0 multivitamin Tablet 1 tab PO QPM RF: 0 mupirocin 2 % ointment 1 applic TOPICAL TID RF: 0 Referrals Referrals: Uzair Dalal MD [Primary Care Provider] -
[2021-09-01] MEDS ORDERED: ACETAMINOPHEN 500 MG TAB PO PRN (02:38)
[2021-09-01] MEDS ORDERED: TAMSULOSIN HCL 0.4 MG CAP PO ONE (02:48)
[2021-09-01] MEDS ORDERED: ONDANSETRON INJ 2 MG/ML 2 ML VIAL IV PRN ×2 (02:58→09:33)
[2021-09-01] MEDS: SODIUM CHLORIDE 0.9% 1000ML 1,000 ML IV SCH ×2 (03:18→11:55)
[2021-09-01] MEDS ORDERED: CIPROFLOXACIN 500 MG TAB PO SCH (03:45)
[2021-09-01] MEDS ORDERED: HYDROmorphone INJ 0.5 MG/0.5 ML SYR ONE (04:22)
[2021-09-01] MEDS ORDERED: cefTRIAXone SODIUM 2,000 MG in DEXTROSE 5% 50 ML IV SCH (04:30)
[2021-09-01 05:15] LABS: Albumin Globulin Ratio 1.1 (0.9-2); Albumin Level 3.6 gm/dl (3.4-5.0); BUN Creatinine Ratio 10.3 (10-20); Bilirubin,Total 0.7 mg/dl (0.2-1.0); Calcium 8.5 mg/dl (8.5-10.1); Creatinine Clr Calc Pharmacy 59.6 ml/min; Est GFR (African American) 56.7 ml/min; Est GFR (Non-African American) 48.9 ml/min; Globulin 3.4 gm/dl (2.5-4.0); Magnesium 2.1 mg/dl (1.7-2.4); Potassium 4.1 mmol/L (3.5-5.1)
[2021-09-01] MEDS ORDERED: HYDROmorphone INJ 0.5 MG/0.5 ML SYR IV PRN (05:30)
[2021-09-01 05:47] LABS: Basophils # (auto) 0.01 K/uL (0-0.2); Basophils % (auto) 0.1 %; Eosinophils # (auto) 0.19 K/uL (0-0.5); Eosinophils % (auto) 1.7 %; Hematocrit (blood only) 36.6 % (42-52); Hemoglobin 11.8 g/dL (14.0-18.0); Immature Granulocytes # (auto) 0.03 K/uL (0.00-0.02); Immature Granulocytes % (auto) 0.3 %; Lymphocytes # (auto) 1.55 K/uL (1.2-3.4); Lymphocytes % (auto) 14.2 %; Mean Corpuscular Hgb Conc 32.2 g/dL (32-36); Mean Corpuscular Volume 86.9 fL (80-100); Mean Platelet Volume 9.2 fL (7.4-10.4); Monocytes # (auto) 1.16 K/uL (0.11-0.59); Monocytes % (auto) 10.6 %; Neutrophils # (auto) 8.01 K/uL (1.4-6.5); Neutrophils % (auto) 73.1 %; Platelet Count 313 K/uL (130-400); RDW Coefficient of Variation 13.1 % (11.5-14.5); Red Blood Count 4.21 M/uL (4.7-6.1); White Blood Count 10.95 K/uL (4.8-10.8)
[2021-09-01] MEDS ORDERED: CIPROFLOXACIN / D5W 400 MG/200 ML BAG IV SCH (09:15)
--- NOTE | 2021-09-01 09:25 | Urology Consultation ---
Date of Consultation September 01, 2021 Assessment & Plan (1) Ureterolithiasis: Uncomplicated kidney stone history including prior interventions which became protracted secondary to postoperative hematuria and clot retention He has understandable concerns about proceeding with surgery now given his past issues I do think it is appropriate to proceed with cystoscopy and right ureteral stent placement I have discussed the role of ureteroscopy and laser lithotripsy but I suspect it is best to proceed in a very cautious manner with stent placement first followed by return for cystoscopy, ureteroscopy laser lithotripsy and definitive stone treatment at a later date We will cover with Cipro now History of Present Illness Attending Physician: Yuliya Macias MD History of Present Illness 56-year-old gentleman well-known to our service secondary to a complicated kidney stone history He had left-sided stones treated earlier this year Recently underwent right ESWL and had some complications afterwards Fortunately he has recovered appropriately but recently returned to the ER on 3 separate occasions secondary to a right ureteral stone He is still in discomfortno nausea or vomiting at the moment T-max of 37.8, borderline leukocytosis, elevated creatinine of 1.5 although improving Lengthy discussion today about options for management He has debated the pros and cons of different interventions and I have recommended intervention with cystoscopy and right ureteral stent placement Allergies Allergy/AdvReac Type Severity Reaction Status Date / Time No Known Allergies Allergy Mild Verified 08/31/21 21:50 Home Medications Medication Instructions Recorded Confirmed Type multivitamin 1 tab PO QPM 04/17/21 08/31/21 History oxycodone 5 mg tablet 5 mg PO BID PRN #10 tab 08/23/21 08/31/21 Rx tamsulosin 0.4 mg capsule 0.4 mg PO HS #30 cap 08/23/21 08/31/21 Rx Saccharomyces boulardii 250 mg 250 mg PO BID #20 cap 08/26/21 08/31/21 Rx capsule (Florastor) ciprofloxacin HCl 500 mg tablet 500 mg PO Q12H #20 tab 08/26/21 08/31/21 Rx ondansetron 4 mg disintegrating 4 mg PO Q6H PRN #14 tab 08/26/21 08/31/21 Rx tablet mupirocin 2 % topical ointment 1 applic TOPICAL TID 08/31/21 08/31/21 History Patient History Medical History Acute kidney injury Borderline hypertension no medication Chronic back pain ongoing History of colon polyps History of COVID-19 03/2021; sore throat, congestion, chills; resolved. Hx of gastroesophageal reflux (GERD) Kidney calculi left side "cleaned out" Dr to "clean out" right side on 08/02. Kidney hematoma Retroperitoneal bleeding Surgical History History of colonoscopy History of cystoscopy Cystoscopy, Ureteronephroscopy, Left Ureteral Dilation, Laser Destruction of the Stone, Left Insertion Stent Catheter History of esophagogastroduodenoscopy (EGD) Family History Other No family history of adverse response to anesthesia No significant family history Social History Smoking Status: Current some day smoker Tobacco Type: Cigars Cigarettes Per Day: does not inhale; Second Hand Exposure: No; Hx Alcohol Use: Yes Alcohol Intake Frequency: Monthly or Less Hx Substance Use: No Preferred Language: Cuban Communication Ability: Effective Movable Bulkhead Installer Required: No Beliefs That Will Affect Care: None Current Living Situation: Alone Feels Safe at Home: Yes Safety Concerns: Feels Safe At This Time Assistive Devices: Glasses Physical Exam Constitutional: well developed and well nourished Neck: neck nontender Respiratory: normal respiratory effort; no respiratory distress and does not use accessory muscles Cardiovascular: Rate/Rhythm: regular rate Vessels: radial pulses present Extremities: no edema Gastrointestinal (Abdomen): Inspection/Auscultation: abdomen normal to inspection Percussion/Palpation: abdomen soft; abdomen nontender and no guarding Musculoskeletal: Head/Neck/Chest: normocephalic and head atraumatic Extremities: extremities normal to inspection Skin: no rashes and no lesions Trauma: no evidence of skin trauma Neurologic: awake; not obtunded Speech / Cognition: normal speech Motor/Sensory: no tremor Psychiatric: Orientation: alert and oriented x 3 Genitourinary: no CVA tenderness Lymphatic: no lymphadenopathy Results & Data ([facility]) Vital Signs (Past 12 Hours) Vital Signs Temp Pulse Pulse Resp BP BP BP 09/01/21 07:41 37.8 C H 93 H 16 153/91 H 07/03/22 01:05 37.8 C H 96 H 18 167/95 H 09/01/21 01:00 89 18 148/91 H 09/01/21 00:29 91 H 18 147/93 H 08/31/21 22:06 87 18 157/93 H Pulse Ox 09/01/21 07:41 93 09/01/21 01:05 96 09/01/21 01:00 95 09/01/21 00:29 95 08/31/21 22:06 97 PG Care Time/CCT Total # of Minutes Spent Total Time Spent with Patient: Total time spent is greater than 50% in coordination of care (as documented) at patient's floor/unit and/or counseling patient: Coding Level of Care Code 17236 Inpt Consult Level 4 Diagnoses Ureterolithiasis N20.1
[2021-09-01] MEDS ORDERED: fentaNYL citrate 100 MCG/2 ML VIAL IV PRN (09:33)
[2021-09-01] MEDS ORDERED: ATROPINE SULFATE 0.1 MG/ML 10ML SYR IV PRN (09:33)
[2021-09-01] MEDS ORDERED: LABETALOL HCL IV 5 MG/ML 20ML IV PRN (09:33)
--- NOTE | 2021-09-01 09:33 | Anesthesiology Consultation ---
Date of Service September 01, 2021 Assessment & Plan (1) Encounter for pre-operative examination: Chart Review Chart Review: Acceptable Risk for Surgery History Surgery Operation Date: 09/01/21 10:15 Proposed Procedures p Cystoscopy Retrograde(Right) - Rubén Negron MD Height/Weight Height: 5 ft 8 in Weight: 96.8 kg Allergies Allergy/AdvReac Type Severity Reaction Status Date / Time No Known Allergies Allergy Mild Verified 08/31/21 21:50 Medications Home Medications Medication Instructions Recorded Confirmed Last Taken multivitamin 1 tab PO QPM 04/17/21 08/31/21 08/23/21 oxycodone 5 mg tablet 5 mg PO BID PRN #10 tab 08/23/21 08/31/21 Unknown tamsulosin 0.4 mg capsule 0.4 mg PO HS #30 cap 08/23/21 08/31/21 08/23/21 Saccharomyces boulardii 250 mg 250 mg PO BID #20 cap 08/26/21 08/31/21 Unknown capsule (Florastor) ciprofloxacin HCl 500 mg tablet 500 mg PO Q12H #20 tab 08/26/21 08/31/21 Unknown ondansetron 4 mg disintegrating 4 mg PO Q6H PRN #14 tab 08/26/21 08/31/21 Unknown tablet mupirocin 2 % topical ointment 1 applic TOPICAL TID 08/31/21 08/31/21 Unknown Active Medications Generic Name Dose Route Start Last Admin Trade Name Freq PRN Reason Stop Dose Admin Hydromorphone HCl 0.5 mg 09/01/21 05:30 09/01/21 04:23 Hydromorphone Inj 0.5 Mg/0.5 Ml Syr IV 09/15/21 05:29 0.5 mg Q6H PRN Administration severe pain 8-10 Sodium Chloride 1,000 mls @ 120 mls/hr 09/01/21 02:45 09/01/21 03:18 Nss 1000ml IV 09/01/21 19:24 120 mls/hr .Q8H20M CARMEN Administration Ceftriaxone Sodium 2,000 mg/ 70 mls @ 100 mls/hr 09/01/21 04:30 09/01/21 05:18 Dextrose IV 09/11/21 04:29 Infused Q24H CARMEN Infusion Protocol Past Medical History Medical History Acute kidney injury Borderline hypertension no medication Chronic back pain ongoing History of colon polyps History of COVID-19 03/2021; sore throat, congestion, chills; resolved. Hx of gastroesophageal reflux (GERD) Kidney calculi left side "cleaned out" Dr to "clean out" right side on 08/02. Kidney hematoma Retroperitoneal bleeding Past Family History Family History Other No family history of adverse response to anesthesia No significant family history Past Surgical History Surgical History History of colonoscopy History of cystoscopy Cystoscopy, Ureteronephroscopy, Left Ureteral Dilation, Laser Destruction of the Stone, Left Insertion Stent Catheter History of esophagogastroduodenoscopy (EGD) Social History Smoking Status: Current some day smoker tobacco type: cigars Smoking cigarettes per day: does not inhale Hx Alcohol Use: Yes alcohol intake frequency: holidays/special occasions only Hx Substance Use: No substance use type: does not use Physical Exam Vital Signs Last Vital Signs Temp 37.8 C H 09/01/21 07:41 Pulse 93 H 09/01/21 07:41 Resp 16 09/01/21 07:41 BP 153/91 H 09/01/21 07:41 Pulse Ox 93 09/01/21 07:41 Testing Laboratory Results 09/01/21 04:38 09/01/21 04:38 Urine Color Yellow 08/31/21 22:04 Urine Appearance Clear (Clear) 08/31/21 22:04 Urine pH 7.5 (4.5-7.5) 08/31/21 22:04 Ur Specific [place] 1.018 (1.000-1.030) 08/31/21 22:04 Urine Protein Trace (Negative) H 08/31/21 22:04 Urine Glucose (UA) Negative (Negative) 08/31/21 22:04 Urine Ketones Negative (Negative) 08/31/21 22:04 Urine Nitrite Negative (Negative) 08/31/21 22:04 Ur Leukocyte Esterase Negative (Negative) 08/31/21 22:04 Urine WBC (Auto) 0 /hpf (0-5) 08/31/21 22:04 Urine RBC (Auto) 5-10 /hpf (0-4) H 08/31/21 22:04 U Hyaline Cast (Auto) 0 /lpf (0-5) 08/31/21 22:04 U Epithel Cells (Auto) 0-5 /lpf (0-5) 08/31/21 22:04 Urine Bacteria (Auto) Negative (Negative) 08/31/21 22:04 Electrocardiogram Date: 08/26/21 Findings: + NSR @ (06)
[2021-09-01] MEDS ORDERED: MIDAZOLAM HCL 1 MG/ML 2ML VIAL ONE (09:41)
[2021-09-01] MEDS ORDERED: LIDOCAINE 2% 2 ML VIAL/AMP(20MG/ML) INFIL ONE (09:41)
[2021-09-01] MEDS ORDERED: PROPOFOL IV EMULSION 10 MG/ML 20 ML VIAL IV ONE (09:41)
[2021-09-01] MEDS ORDERED: DEXAMETHASONE SOD INJ 4 MG/ML VIAL ONE (09:41)
[2021-09-01] MEDS ORDERED: ONDANSETRON INJ 2 MG/ML 2 ML VIAL ONE (09:41)
[2021-09-01] MEDS ORDERED: fentaNYL citrate 100 MCG/2 ML VIAL ONE ×2 (09:41→10:20)
--- NOTE | 2021-09-01 10:34 | Operative Report ---
PG Post Operative Report Pre & Post Diagnosis Operation Date: 09/01/21 10:15 Pre-Op Diagnosis: right Ureterolithiasis Post-Op Diagnosis: right Ureterolithiasis I identified the patient and participated in the time-out.: Yes Procedure Operation Date: 09/01/21 10:15 Actual Procedures p Cystoscopy, right ureteral stent placement, right ureteroscopy(Right) - Rubén Negron MD Surgeon Rubén Negron MD Commercial Technician none Estimated Blood Loss 0 Findings Consistent with Post-Op Diagnosis Specimens none Description of Procedure The patient was identified in the preoperative holding area, appropriate informed consents were reviewed and completed and the patient was transferred to the operative suite. Upon arrival, appropriate antibiotics and anesthesia were administered and the patient was placed in dorsal lithotomy position and prepped and draped in sterile fashion. To begin the case I passed a 22 Venezuelan cystoscope with 30 degree lens and visual obturator. Inspection revealed a healthy-appearing urethra and a moderately enlarged prostate with a mildly elevated bladder neck. Inspection of the bladde r was unremarkable Ureteral orifices were in orthotopic position. I cannulated the right UO with a sensor wire and a 5 Venezuelan open-ended catheter. The wire advanced to the kidney without difficulty. I then attempted to pass a 10 Venezuelan double-lumen catheter over the wire but met resistance in the distal ureter. This was somewhat lower than the location of the stone seen on CT from yesterday. I did place a second wire through this 10 Venezuelan double-lumen without difficulty. I then exchanged the 10 Venezuelan double-lumen for a flexible ureteroscope. I was anxious to see if the stone was in this location or if this was another restriction. Unfortunately this was a simple restriction of the ureter. Not a true stricture just simply the ureter did not have the diameter to accommodate the scope. Rather than dilate or traumatize the ureter I elected to back out at that time. I placed a 6 Venezuelan by 26 cm looped ureteral stent seeing a good curl in the kidney as well as the bladder. I decompressed the bladder and concluded the case. He was reversed of anesthesia and taken to the recovery room in stable condition. I attest to the content of the Intraoperative Record and any orders documented therein. Any exceptions are noted below.
--- NOTE | 2021-09-01 10:49 | Fluoroscopy Report ---
FL retrograde includes kub CLINICAL HISTORY: RIGHT SIDE STENT COMPARISON STUDY: CT of the abdomen and pelvis August 31, 2021. FLUOROSCOPY TIME: 10.7 seconds. FLUOROSCOPIC IMAGES: 1 FINDINGS: Fluoroscopy was provided during placement of a right ureteral stent. IMPRESSION: Fluoroscopy provided during placement of a right ureteral stent. ACT 112: Negative or not required by law. Electronically signed by: Magdiel Lai M.D. 09/01/2021 10:48 AM
--- NOTE | 2021-09-01 11:46 | Anesthesiology Progress Note ---
Date of Service September 01, 2021 Anesthesia Post Procedure Vital Signs Vital Signs: Temp Pulse Pulse Resp BP BP BP 09/01/21 11:05 36.5 C 96 H 16 134/97 09/01/21 10:55 36.5 C 102 H 19 140/99 09/01/21 10:45 96 H 15 121/88 09/01/21 10:35 36.7 C 100 H 15 134/92 09/01/21 07:41 37.8 C H 93 H 16 153/91 H 09/01/21 01:05 37.8 C H 96 H 18 167/95 H 09/01/21 01:00 89 18 148/91 H 09/01/21 00:29 91 H 18 147/93 H 08/31/21 22:06 87 18 157/93 H 08/31/21 20:41 36.6 C 103 H 20 157/111 H Pulse Ox 09/01/21 11:05 93 09/01/21 10:55 94 09/01/21 10:45 95 09/01/21 10:35 94 09/01/21 07:41 93 09/01/21 01:05 96 09/01/21 01:00 95 09/01/21 00:29 95 08/31/21 22:06 97 08/31/21 20:41 97 Pain Intensity Right Lower Abdomen: Pain Intensity: 0 Transfer of Care Handoff Completed per policy Notes Mental Status: alert / awake / arousable Patient Amnestic to Procedure: Yes Nausea / Vomiting: adequately controlled Pain: adequately controlled Airway Patency, RR, SpO2: stable & adequate BP & HR: stable & adequate Hydration State: stable & adequate Anesthetic Complications: no major complications apparent
--- NOTE | 2021-09-01 13:18 | Hospitalist Progress Note ---
Date of Service September 01, 2021 Assessment & Plan (1) Ureterolithiasis: Plan: 56 year old male w/ PMHx of bilat nephrolithiasis (L ureteral stent 04/2021, since removed) who presents for recurrent severe R flank pain secondary to 4mm obstructing R mid to distal ureteral stone. S/p R lithotripsy on 08/23/21. Obstructing Ureterolithiasis, right - CT abd/pelvis 08/24: Mild right-sided hydroureteronephrosis secondary to two subadjacent calculi within the right ureter at the level of L3 measuring up to 4 mm. Also noted to have acute subcapsular hematoma of the R kidney measuring up to 11.5 x 2.4 cm moderately compressing adjacent renal parenchyma. Nonobstructing L nephrolithiasis. - CT abd/pelvis 08/26: Again seen are 2 obstructing calculi in the proximal to mid right ureter which measure up to 5 mm w/ mild to moderate R sided hydroureteronephrosis. Nonobstructing renal calculi seen bilaterally. - CT abd/pelvis 08/31 (on current admission): Re-demonstration of right hydroureteronephrosis with 4mm obstructive stone in the mid to distal ureter. Stable subcapsular hemorrhage of the right kidney. - UA on admission 08/31 with + blood but otherwise unremarkable (no bacteria, wbc, nitrites, or leuk esterase) - Patient was started on cipro po on 08/26; will continue abx therapy with ceftriaxone during admission - Continue Flomax, IV fluids, Zofran prn, and analgesic with Dilaudid - Urology consulted: patient underwent cystoscopy, right ureteral stent placement, and right ureteroscopy on 09/01 - Recommends continued analgesic management and observation overnight CHARLINE, improving - Baseline Cr around 1.15; on admission, Cr 1.73 - Likely both pre-renal and post-renal associated with decreased po intake secondary to pain as well as post-renal obstructive etiology - Maintenance IVF ordered - Trend BMP Renal hematoma - Stable per CT as noted above - Hold DVT chemoppx Hydronephrosis due to obstruction of ureter - see above Anemia - Mild, normocytic - Baseline Hgb 14; Hgb on admission 12.4 - Trend CBC Elevated BP Reading - No known hx of HTN; current elevated BP is likely secondary to pain - Recommend outpatient follow up/monitoring FEN/GI: NPO. NSS 120mL/hr Ppx: SCDs only. No chemoppx in setting of renal hematoma/hemorrhage. Dispo: continue hospitalization on med surg Code status: FULL (2) Acute kidney injury: (3) Kidney hematoma: (4) Anemia: (5) Hydronephrosis due to obstruction of ureter: (6) Kidney calculi: (7) Elevated blood pressure reading: Admission and Anticipated Discharge Date Admission Date: August 31, 2021 Supervising Physician Co-Signing Physician Notes Resident Physician Supervision Note: I independently interviewed and examined the patient and verified the villalpando history and physical, reviewed labs and image studies and agree with resident Dr. Marrero findings and care plan. Subjective Patient seen and evaluated at bedside this morning. Reports that the pain is resolved with IV dilaudid; there was not as much relief with previous doses of morphine. Does report some recurrent pain now, most prominently in right lower a bdomen, as the analgesic is wearing off. Patient denies nausea or vomiting. He is voiding without difficulty or dysuria. Patient does express frustration about the frequent hospitalizations/evaluations for these calculi. Review of Systems Review of Systems: See HPI Physical Exam Physical Exam: GENERAL: No acute distress. Well developed and well nourished. Vital signs reviewed as above. EYES: EOMI. Anicteric sclerae. HENT: Moist mucous membranes. RESPIRATORY: Clear to auscultation bilaterally. No wheezing, rales, or rhonchi. CARDIOVASCULAR: Regular rate and rhythm. No murmurs. ABDOMEN: Soft. + tenderness to palpation on right side of abdomen, most prominent in right lower quadrant. + right CVA tenderness to palpation. Abd is non-distended. Normal bowel sounds. EXTREMITIES: No edema. Non-tender. SKIN: Warm, dry. NEUROLOGIC: A/O x3. Normal speech. No focal neurological deficits. PSYCHIATRIC: Cooperative. Appropriate mood and affect. Results & Data Results & Data ([facility]) Vital Signs (Past 12 Hours) Vital Signs Temp Pulse Pulse Resp BP BP BP 09/01/21 11:45 37.7 C H 91 H 20 141/90 H 09/01/21 11:15 37.5 C 98 H 18 136/86 09/01/21 11:05 36.5 C 96 H 16 134/97 09/01/21 10:55 36.5 C 102 H 19 140/99 09/01/21 10:45 96 H 15 121/88 09/01/21 10:35 36.7 C 100 H 15 134/92 09/01/21 07:41 37.8 C H 93 H 16 153/91 H 09/01/21 01:05 37.8 C H 96 H 18 167/95 H 09/01/21 01:00 89 18 148/91 H Pulse Ox 09/01/21 11:45 93 09/01/21 11:15 92 09/01/21 11:05 93 09/01/21 10:55 94 09/01/21 10:45 95 09/01/21 10:35 94 09/01/21 07:41 93 09/01/21 01:05 96 09/01/21 01:00 95 Laboratory Results 09/01/21 09/01/21 08/31/21 Range/Units 04:38 04:38 23:28 WBC 10.95 H (4.8-10.8) K/uL RBC 4.21 L (4.7-6.1) M/uL Hgb 11.8 L (14.0-18.0) g/dL Hct 36.6 L (42-52) % MCV 86.9 (80-100) fL MCH 28.0 (25-34) pg MCHC 32.2 (32-36) g/dL RDW Std Deviation 42.0 (36.4-46.3) fL RDW Coeff of Supriya 13.1 (11.5-14.5) % Plt Count 313 (130-400) K/uL MPV 9.2 (7.4-10.4) fL Immature Gran % (Auto) 0.3 % Neut % (Auto) 73.1 % Lymph % (Auto) 14.2 % Stephenson % (Auto) 10.6 % Eos % (Auto) 1.7 % Baso % (Auto) 0.1 % Neut # (Auto) 8.01 H (1.4-6.5) K/uL Lymph # (Auto) 1.55 (1.2-3.4) K/uL Stephenson # (Auto) 1.16 H (0.11-0.59) K/uL Eos # (Auto) 0.19 (0-0.5) K/uL Baso # (Auto) 0.01 (0-0.2) K/uL Immature Gran # (Auto) 0.03 H (0.00-0.02) K/uL Sodium 138 (136-145) mmol/L Potassium 4.1 (3.5-5.1) mmol/L Chloride 107 (98-107) mmol/L Carbon Dioxide 26 (21-32) mmol/L Anion Gap 5 (3-11) BUN 16 (6-23) mg/dl Creatinine 1.56 H (0.6-1.4) mg/dl Est Cr Clr Drug Dosing 59.6 ml/min Est GFR ( Amer) 56.7 ml/min Est GFR (Non-Af Amer) 48.9 ml/min BUN/Creatinine Ratio 10.3 (10-20) Glucose 103 H (70-99(Fasting)) mg/dl Lactate (0.4-2.0) mmol/L Calcium 8.5 (8.5-10.1) mg/dl Magnesium 2.1 (1.7-2.4) mg/dl Total Bilirubin 0.7 (0.2-1.0) mg/dl AST 22 (13-39) U/L ALT 45 (7-52) U/L Alkaline Phosphatase 61 (34-104) U/L Total Protein 7.0 (6.0-8.3) gm/dl Albumin 3.6 (3.4-5.0) gm/dl Globulin 3.4 (2.5-4.0) gm/dl Albumin/Globulin Ratio 1.1 (0.9-2) Urine Color Urine Appearance (Clear) Urine pH (4.5-7.5) Ur Specific Start (1.000-1.030) Urine Protein (Negative) Urine Glucose (UA) (Negative) Urine Ketones (Negative) Urine Blood (Negative) Urine Nitrite (Negative) Urine Bilirubin (Negative) Urine Urobilinogen (Negative) Ur Leukocyte Esterase (Negative) Urine WBC (Auto) (0-5) /hpf Urine RBC (Auto) (0-4) /hpf U Hyaline Cast (Auto) (0-5) /lpf U Epithel Cells (Auto) (0-5) /lpf Urine Bacteria (Auto) (Negative) SARS-CoV-2, RNA, NAAT NEGATIVE (NEGATIVE) 08/31/21 08/31/21 08/31/21 Range/Units 22:04 21:03 20:56 WBC (4.8-10.8) K/uL RBC (4.7-6.1) M/uL Hgb (14.0-18.0) g/dL Hct (42-52) % MCV (80-100) fL MCH (25-34) pg MCHC (32-36) g/dL RDW Std Deviation (36.4-46.3) fL RDW Coeff of Supriya (11.5-14.5) % Plt Count (130-400) K/uL MPV (7.4-10.4) fL Immature Gran % (Auto) % Neut % (Auto) % Lymph % (Auto) % Stephenson % (Auto) % Eos % (Auto) % Baso % (Auto) % Neut # (Auto) (1.4-6.5) K/uL Lymph # (Auto) (1.2-3.4) K/uL Stephenson # (Auto) (0.11-0.59) K/uL Eos # (Auto) (0-0.5) K/uL Baso # (Auto) (0-0.2) K/uL Immature Gran # (Auto) (0.00-0.02) K/uL Sodium 138 (136-145) mmol/L Potassium 4.1 (3.5-5.1) mmol/L Chloride 107 (98-107) mmol/L Carbon Dioxide 25 (21-32) mmol/L Anion Gap 6 (3-11) BUN 21 (6-23) mg/dl Creatinine 1.73 H (0.6-1.4) mg/dl Est Cr Clr Drug Dosing 53.0 ml/min Est GFR ( Amer) 50.0 ml/min Est GFR (Non-Af Amer) 43.2 ml/min BUN/Creatinine Ratio 12.1 (10-20) Glucose 160 H (70-99(Fasting)) mg/dl Lactate 1.4 (0.4-2.0) mmol/L Calcium 8.9 (8.5-10.1) mg/dl Magnesium (1.7-2.4) mg/dl Total Bilirubin (0.2-1.0) mg/dl AST (13-39) U/L ALT (7-52) U/L Alkaline Phosphatase (34-104) U/L Total Protein (6.0-8.3) gm/dl Albumin (3.4-5.0) gm/dl Globulin (2.5-4.0) gm/dl Albumin/Globulin Ratio (0.9-2) Urine Color Yellow Urine Appearance Clear (Clear) Urine pH 7.5 (4.5-7.5) Ur Specific Start 1.018 (1.000-1.030) Urine Protein Trace H (Negative) Urine Glucose (UA) Negative (Negative) Urine Ketones Negative (Negative) Urine Blood 1+ H (Negative) Urine Nitrite Negative (Negative) Urine Bilirubin Negative (Negative) Urine Urobilinogen Negative (Negative) Ur Leukocyte Esterase Negative (Negative) Urine WBC (Auto) 0 (0-5) /hpf Urine RBC (Auto) 5-10 H (0-4) /hpf U Hyaline Cast (Auto) 0 (0-5) /lpf U Epithel Cells (Auto) 0-5 (0-5) /lpf Urine Bacteria (Auto) Negative (Negative) SARS-CoV-2, RNA, NAAT (NEGATIVE) 08/31/21 Range/Units 20:56 WBC 11.53 H (4.8-10.8) K/uL RBC 4.23 L (4.7-6.1) M/uL Hgb 12.4 L (14.0-18.0) g/dL Hct 36.7 L (42-52) % MCV 86.8 (80-100) fL MCH 29.3 (25-34) pg MCHC 33.8 (32-36) g/dL RDW Std Deviation 41.1 (36.4-46.3) fL RDW Coeff of Supriya 12.8 (11.5-14.5) % Plt Count 304 (130-400) K/uL MPV 9.2 (7.4-10.4) fL Immature Gran % (Auto) 0.3 % Neut % (Auto) 81.0 % Lymph % (Auto) 10.6 % Stephenson % (Auto) 7.1 % Eos % (Auto) 0.8 % Baso % (Auto) 0.2 % Neut # (Auto) 9.35 H (1.4-6.5) K/uL Lymph # (Auto) 1.22 (1.2-3.4) K/uL Stephenson # (Auto) 0.82 H (0.11-0.59) K/uL Eos # (Auto) 0.09 (0-0.5) K/uL Baso # (Auto) 0.02 (0-0.2) K/uL Immature Gran # (Auto) 0.03 H (0.00-0.02) K/uL Sodium (136-145) mmol/L Potassium (3.5-5.1) mmol/L Chloride (98-107) mmol/L Carbon Dioxide (21-32) mmol/L Anion Gap (3-11) BUN (6-23) mg/dl Creatinine (0.6-1.4) mg/dl Est Cr Clr Drug Dosing ml/min Est GFR ( Amer) ml/min Est GFR (Non-Af Amer) ml/min BUN/Creatinine Ratio (10-20) Glucose (70-99(Fasting)) mg/dl Lactate (0.4-2.0) mmol/L Calcium (8.5-10.1) mg/dl Magnesium (1.7-2.4) mg/dl Total Bilirubin (0.2-1.0) mg/dl AST (13-39) U/L ALT (7-52) U/L Alkaline Phosphatase (34-104) U/L Total Protein (6.0-8.3) gm/dl Albumin (3.4-5.0) gm/dl Globulin (2.5-4.0) gm/dl Albumin/Globulin Ratio (0.9-2) Urine Color Urine Appearance (Clear) Urine pH (4.5-7.5) Ur Specific Start (1.000-1.030) Urine Protein (Negative) Urine Glucose (UA) (Negative) Urine Ketones (Negative) Urine Blood (Negative) Urine Nitrite (Negative) Urine Bilirubin (Negative) Urine Urobilinogen (Negative) Ur Leukocyte Esterase (Negative) Urine WBC (Auto) (0-5) /hpf Urine RBC (Auto) (0-4) /hpf U Hyaline Cast (Auto) (0-5) /lpf U Epithel Cells (Auto) (0-5) /lpf Urine Bacteria (Auto) (Negative) SARS-CoV-2, RNA, NAAT (NEGATIVE) Resident Activity Tracking Resident Involvement: Resident Care Provided Care Provided: Adult Hospital Medicine
[2021-09-01] MEDS ORDERED: PHENAZOPYRIDINE HCL 200 MG TAB PO ONE (15:33)
--- NOTE | 2021-09-01 18:40 | Discharge Summary ---
Date of Service September 01, 2021 Admission HPI Per Admitting Provider 56 year old male w/ PMHx of bilat nephrolithiasis (L ureteral stent 04/2021, since removed) who presents for continued severe R flank pain. After the R lithotripsy procedure on 08/23/21, patient went home, and returned for admission from 08/23/21-08/25/21 for R renal subcapsular hematoma on CT overread. There was slight migration of his ureteral stone and the plan was for medical management. He returns this admission for 11/09 constant nonradiating flank pain w/o relief from outpatient oxycodone and tylenol. Currently pain is minimal after a dose of Dilaudid 1mg IV. He denies other symptoms such as fever, chills, shortness of breath, constipation, or nausea/vomiting. ED course: morphine 4mg IV, zofran, 1L NSS bolus, Dilaudid 1mg IV. Informed by ED provider that team is aware of patients R subcapular hematoma; no acute concern. Hold DVT chemoprophylaxis. Admission Exam Per Admitting Provider General: Grossly A&O. NAD. Cooperative. Conversational. HEENT: Atraumatic, normocephalic. EOMI. No cervical lymphadenopathy. Pulm: CTAB. -wheezes, -rales, -rhonchi. No respiratory distress. Cardiac: RRR, -mrg. Radial pulses intact and symmetrical. Abdominal: RUQ and R flank ttp. No rebounding or guarding. Abd is soft, nondistended. Back: + R lower CVA ttp. Msk: Moving all extremities. Integ: Warm, dry, intact. Principal Diagnosis ureterolithiasis Discharge Exam GENERAL: No acute distress. Well developed and well nourished. Vital signs revi ewed as above. RESPIRATORY: Unlabored respirations. NEUROLOGIC: A/O x3. Normal speech. Discharge Data Allergies Allergy/AdvReac Type Severity Reaction Status Date / Time No Known Allergies Allergy Mild Verified 08/31/21 21:50 Consultations 08/31/21 23:12 ED Decision to Admit Stat 09/01/21 01:27 Consult Urology Routine Procedures Performed Operation Date: 09/01/21 10:15 Actual Procedures p Cystoscopy, right urethral stent placement, right ureteroscopy(Right) - Rubén Negron MD Ordered Studies 08/31/21 21:23 CT abd pelvis wo con Stat 09/01/21 [place] retrograde includes kub Routine Hospital Course (1) Ureterolithiasis: 56 year old male w/ PMHx of bilat nephrolithiasis (L ureteral stent 04/2021, since removed) who presents for recurrent severe R flank pain secondary to 4mm obstructing R mid to distal ureteral stone. S/p R lithotripsy on 08/23/21. Obstructing Ureterolithiasis, right - CT abd/pelvis 08/24: Mild right-sided hydroureteronephrosis secondary to two subadjacent calculi within the right ureter at the level of L3 measuring up to 4 mm. Also noted to have acute subcapsular hematoma of the R kidney measuring up to 11.5 x 2.4 cm moderately compressing adjacent renal parenchyma. Nonobstructing L nephrolithiasis. - CT abd/pelvis 08/26: Again seen are 2 obstructing calculi in the proximal to mid right ureter which measure up to 5 mm w/ mild to moderate R sided hydroureteronephrosis. Nonobstructing renal calculi seen bilaterally. - CT abd/pelvis 08/31 (on current admission): Re-demonstration of right hydroureteronephrosis with 4mm obstructive stone in the mid to distal ureter. Stable subcapsular hemorrhage of the right kidney. - UA on admission 08/31 with + blood but otherwise unremarkable (no bacteria, wbc, nitrites, or leuk esterase) - Patient was started on cipro po on 08/26; received abx therapy with ceftriaxone during admission; discharged home back on cipro to complete course as previously prescribed. - Received Flomax, IV fluids, Zofran prn, and analgesic with Dilaudid during admission - Urology consulted: patient underwent cystoscopy, right ureteral stent placement, and right ureteroscopy on 09/01 - Recommends continued analgesic management and observation overnight - Blood cultures ordered on admission, pending CHARLINE, improving - Baseline Cr around 1.15; on admission, Cr 1.73 - Likely both pre-renal and post-renal associated with decreased po intake secondary to pain as well as post-renal obstructive etiology - Recommend repeat BMP in 1 week Renal hematoma - Stable per CT as noted above - Chemoppx deferred Hydronephrosis due to obstruction of ureter - see above Anemia - Mild, normocytic - Baseline Hgb 14; Hgb on admission 12.4 - Recommend repeat CBC in 1 week Elevated BP Reading - No known hx of HTN; current elevated BP is likely secondary to pain - Recommend outpatient follow up/monitoring Dispo: home w/ self-care Code status: FULL (2) Acute kidney injury: (3) Kidney hematoma: (4) Anemia: (5) Hydronephrosis due to obstruction of ureter: (6) Kidney calculi: (7) Elevated blood pressure reading: Total Time Total Time Spent Total Time Spent (In Minutes): See attending attestation Discharge Plan Discharge Items Patient Disposition: Home - Self-Care Reason For Visit: R FLANK PAIN Discharge Diagnosis: Ureterolithiasis Activity: Resume your previous activity Non-emergency contact: Primary Care Provider and Urologist Call non-emergency contact if: you have any medication questions and your symptoms worsen Follow-up/Referrals: Rubén Negron MD [Physician] - Uzair Dalal MD [Primary Care Provider] - Diet: Regular Addtl Attending Provider Instructions: You were admitted for an obstructing stone in the right ureter. You underwent surgical intervention for stent placement with urology today. Please continue to take Tylenol 1000mg by mouth every 8 hours as needed for pain. Follow up with urology as directed; please call their office on Thursday (09/03/21) to schedule an appointment. You should also follow up with your primary care doctor within 1 week. Continue the antibiotic, cipro, as previously prescribed. Return to the Emergency Department for worsening or concerning symptoms including persistent fever or worsening abdominal pain. Pending Studies at Discharge: No Stand-Alone Forms: My [facility] [employer], Smoking Cessation Medications and DC Order Prescriptions: Continued tamsulosin 0.4 mg capsule 0.4 mg PO HS Qty: 30 RF: 0 oxycodone 5 mg tablet 5 mg PO BID PRN (Reason: pain) Qty: 10 RF: 0 ciprofloxacin HCl 500 mg tablet 500 mg PO Q12H Qty: 20 RF: 0 Saccharomyces boulardii [Florastor] 250 mg capsule 250 mg PO BID Qty: 20 RF: 0 ondansetron 4 mg tablet,disintegrating 4 mg PO Q6H PRN (Reason: nausea and vomiting) Qty: 14 RF: 0 multivitamin Tablet 1 tab PO QPM RF: 0 mupirocin 2 % ointment 1 applic TOPICAL TID RF: 0 Discharge Orders: Discharge Order (Routine); Ordered 09/01/21 Ordered By: Isabelle Menjivar/Other Patient Handouts: Preventing Kidney Stones Admission Data Admit Date/Time: 08/31/21 23:58 Attending Provider: Yuliya Macias Admit Provider: Adan Vazquez Primary Care Provider: Uzair Dalal Other Providers: Rajat Guerin ; Rubén Negron Other Interventions: Discharge Summary Assessment (RN) Last Done: 09/01/21 18:39 Supervising Physician Co-Signing Physician Notes Resident Physician Supervision Note: I independently interviewed and examined the patient and verified the villalpando history and physical, reviewed labs and image studies and agree with resident Dr. Marrero findings and care plan. Resident Activity Tracking Resident Involvement: Resident Care Provided Care Provided: Adult Hospital Medicine
[2021-09-02] MEDS ORDERED: TAMSULOSIN HCL 0.4 MG CAP PO SCH (09:00)
== END 2021-09-01 19:10 | disposition home or self-care (01) | DRG 661 ==
LOC: ED 20:32 → 3N 23:58 → SUATTDRO 23:58 → 3N 09-01 01:00 → 3W 09-01 11:36